=== PATIENT | female | born 1955 | race Caucasian/White ===

== ENCOUNTER → 2016-04-15 | Day surgery (SDC) | payer MEDICARE, OTHER ==
[~2016-04-15] MED LIST: ACET-706 PO; ACET325T9 PO; ACET500T68 PEG; ALBU2.5V5 NEB; ALPR0.5T PO; AMLO10TA4 PO; AMLO5TAB4 PO; BISA10SU55 RC; CLON0.1T PO; CLON1PAT3 TD; CLOP75TA PO; CLOP75TA27 PO; DIPH1TAB PEG; DOCU-27 PO; ENOX40DI SQ; FAMO-63 PO; FENTANYL PF 100 MCG/2 ML VIAL. IV PRN; HYDR-2867 PO; INSU100C SQ; INSU100I27 SQ; INSU100V13 SQ; IV RINGERS,LACTATED 1000ML 1,000 ML IV SCH; LABE100T3 PO; LANS30CA17 PEG; LEVO25TA2 PEG; LEVO500T38 PO; LEVO750T31 PO; LIDO700A4 TP; LIDOCAINE 1% 1 ML SYRINGE. ID PRN; LIDOCAINE 2% PF Vial for OR 5 ML VIAL. ONE; LIPITOR80 MG PO; LISI10TA2 PO; LORA10TA3 PO; MENT113G6 TP; METO50TA2 PEG; MIDAZOLAM HCL 2 MG/2 ML VIAL. IV PRN; MODA100T2 PO; MULT-245 PO; NITR1PAT5 TD; NYST1000 PEG; OXYC10TA PO; OXYC5TAB PEG; POTA10TA10 PO; POTA20LI14 PEG; PROPOFOL 20 ML IV ONE; ROPI0.5T2 PEG; TEMA15CA PEG; VENL25TA PEG; VENL50TA PO; [UNRECOGNIZED DRUG - CODE] OP
[2016-04-15 11:56] VITALS: BP 112/58
--- NOTE | 2016-04-16 03:29 | HP ---
ADMIT DATE: 04/15/2016 REASON FOR EXAM: Dysfunctional G-tube and oropharyngeal dysphagia. REFERRING PHYSICIAN: Dr. Ar Jc HISTORY OF PRESENT ILLNESS: This is an unfortunate 60-year-old female whose past medical history is significant for quadriplegia, recurrent urinary tract infections as well as diabetes who was seen for dysfunctional tube, has been placed now for approximately a year and replacement was requested. Unable to tolerate feedings, had increased leakage and unable to care at home with her spouse. PAST MEDICAL HISTORY: Quadriplegia, hypertension, diabetes, hypothyroidism. ALLERGIES: Penicillin, cephalexin, morphine. MEDICATIONS: Include acetaminophen, amlodipine, clonidine, Levemir, Prevacid, levothyroxine, metoprolol, nitroglycerin, nystatin, potassium chloride, temazepam and venlafaxine. SOCIAL HISTORY: Lives with her spouse. She does not drink or smoke at this time. She is quadriplegic. FAMILY HISTORY: Noncontributory. REVIEW OF SYSTEMS: Per records. PHYSICAL EXAMINATION: GENERAL: Reveals a thin, cachectic white female who is minimally responsive. VITAL SIGNS: Temp is 98.6, pulse 59, respirations 20. HEENT: Normocephalic and atraumatic head. Pupils and extraocular muscles not tested. Sclerae anicteric. NECK: Supple. LUNGS: Clear. CARDIOVASCULAR: Reveals an S1, S2 without S3, S4 or appreciable murmur. ABDOMEN: Reveals a G-tube in left upper quadrant with multiple surgical incisions. EXTREMITIES: Reveals quadriplegia. IMPRESSION: Oropharyngeal dysphagia with dysfunctional G-tube. We will recommend EGD with G-tube placement. Risks and benefits have been discussed with the patient including risks of hemorrhage or perforation requiring operation. The patient is willing to proceed at this time. I would like to thank Dr. Jc for allowing us to consult and participate in this patient's care. GEMA MIXON MD DR: GARRET/reno JOB#: [id number] / [id number] ITALO Armendariz MD
== END | disposition home or self-care (01) ==
LOC: SURG 09:04
PROVIDERS: ATTEND Internal Medicine Gastroenterology
DX: K94.23 Gastrostomy malfunction (principal); K29.50 Unspecified chronic gastritis without bleeding; I10 Essential (primary) hypertension; E11.9 Type 2 diabetes mellitus without complications; E03.9 Hypothyroidism, unspecified; E78.00 Pure hypercholesterolemia, unspecified; K21.9 Gastro-esophageal reflux disease without esophagitis; Z90.710 Acquired absence of both cervix and uterus; M19.90 Unspecified osteoarthritis, unspecified site; F32.9 Major depressive disorder, single episode, unspecified; D64.9 Anemia, unspecified
CPT/HCPCS: 43246; J2704

== ENCOUNTER 2017-01-13 09:24 | Emergency (ER) | payer MEDICARE, OTHER ==
[~2017-01-13 09:24] MED LIST changes: -DIPH1TAB PO; -IV RINGERS,LACTATED 1000ML 1,000 ML IV SCH; -LACT1CAP8 PO; -LIDOCAINE 1% PF 2 ML VIAL. ID PRN; -LIDOCAINE 2% PF Vial for OR 5 ML VIAL. ONE; +METO50TA2 PEG; -METO50TA6 PEG; -MIDAZOLAM HCL/PF 2 MG/2 ML VIAL. IV PRN; -ONDA4TAB12 PO; -PROPOFOL 0 ML IV ONE; -PROPOFOL 20 ML IV ONE; -fentaNYL PF VIAL 100 MCG/2 ML VIAL IV PRN
--- NOTE | 2017-01-13 09:43 | PHYS DOC ---
Past Medical History Past Medical History: Anemia, Arthritis, CVA, Hypertension, Stroke Additional Past Medical Histor: rectal bleeding Past Surgical History: Hysterectomy, Other Additional Past Surgical Histo: PEG TUBE PLACEMENT, carpal tunnel, cataract right eye Alcohol Use: None Drug Use: None Adult General Chief Complaint Chief Complaint: DIARRHEA HPI HPI Patient is a 61 year old female who presents with her PEG tube leaking and diarrhea. According to her about 2 weeks ago she had a urinary tract infection was placed on antibiotic in about 3 days later she started having a lot of loose stools. He states he's been giving her Imodium and Tylenol fours and she still has a tablespoon of stool every time he changed her which is about 8 times a day. He states first thing in the morning her previous are completely full and leaking over from her stool. He states this morning he was trying to give her medicines and food/feedings were coming out around the PEG tube and it was making a odd noise. Spoke with Dr. Lundberg and Dr. Stewart who recommend did the patient be evaluated in the ER. He denies that she's any pain or discomfort, has any fevers. He does state occasionally she states she's nauseated and she gets Zofran. He states she's on tube feedings all night long. According to the she was started on Flagyl several days ago. Review of Systems Review of Systems Unable to obtain from patient as she is averbal Allergies Allergies Allergies Coded Allergies Type Severity Reaction Last Updated Verified Penicillins Allergy Severe Anaphylaxis 04/15/16 Yes cephalexin Allergy Severe 04/15/16 Yes morphine Allergy Intermediate sweating and shaking 04/15/16 Yes I S O L A T I O N *CONTACT* Allergy Unknown 07/15/16 Yes Physical Exam Physical Exam Constitutional: Well developed, well nourished, no acute distress, non-toxic appearance. HENT: Normocephalic, atraumatic, bilateral external ears normal, oropharynx moist, no oral exudates, nose normal. Eyes: PERRLA, EOMI, conjunctiva normal, no discharge. Neck: Normal range of motion, no tenderness, supple, no stridor. Cardiovascular:Heart rate regular rhythm, no murmur Lungs & Thorax: Bilateral breath sounds clear to auscultation Abdomen: Bowel sounds normal, soft, no tenderness, no masses, no pulsatile masses. PEG tube in the left upper quadrant with minimal discharge around the site Skin: Warm, dry, no erythema, no rash. Back: No tenderness, no CVA tenderness. Extremities: No tenderness, no cyanosis, no clubbing, ROM intact, no edema. Neurologic: Contractures of all 4 extremities, per is at her baseline currently with her history of stroke. Psychologic: Unable to assess Current Patient Data Vital Signs Vital Signs Date Time Temp Pulse Resp B/P (MAP) Pulse Ox O2 Delivery O2 Flow Rate FiO2 01/13/17 12:20 78 131/60 (83) 95 Room Air 01/13/17 09:36 98.1 16 98.1 Lab Values Laboratory Tests Test 01/13/17 10:13 01/13/17 11:05 Urine Collection Type Unknown Urine Color Yellow Urine Clarity Clear Urine pH 8.0 Urine Specific Riddle 1.010 Urine Protein Negative mg/dL (NEG-TRACE) Urine Glucose (UA) Negative mg/dL (NEG) Urine Ketones (Stick) Negative mg/dL (NEG) Urine Blood Negative (NEG) Urine Nitrite Negative (NEG) Urine Bilirubin Negative (NEG) Urine Urobilinogen Dipstick 0.2 mg/dL (0.2 mg/dL) Urine Leukocyte Esterase Negative (NEG) Urine RBC 0 /HPF (0-2) Urine WBC 1-4 /HPF (0-4) Urine Squamous Epithelial Cells Few /LPF Urine Bacteria 0 /HPF (0-FEW) Urine Opiates Screen Pos (NEG) Urine Methadone Screen Neg (NEG) Urine Barbiturates Neg (NEG) Urine Phencyclidine Screen Neg (NEG) Urine Amphetamine/Methamphetamine Neg (NEG) Urine Benzodiazepines Screen Neg (NEG) Urine Cocaine Screen Neg (NEG) Urine Cannabinoids Screen Neg (NEG) Urine Ethyl Alcohol Neg (NEG) White Blood Count 12.1 x10^3/uL (4.0-11.0) H Red Blood Count 4.96 x10^6/uL (3.50-5.40) Hemoglobin 13.7 g/dL (12.0-15.5) Hematocrit 41.7 % (36.0-47.0) Mean Corpuscular Volume 84 fL (79-100) Mean Corpuscular Hemoglobin 28 pg (25-35) Mean Corpuscular Hemoglobin Concent 33 g/dL (31-37) Red Cell Distribution Width 14.5 % (11.5-14.5) Platelet Count 328 x10^3/uL (140-400) Neutrophils (%) (Auto) 81 % (31-73) H Lymphocytes (%) (Auto) 11 % (24-48) L Monocytes (%) (Auto) 6 % (0-9) Eosinophils (%) (Auto) 2 % (0-3) Basophils (%) (Auto) 1 % (0-3) Neutrophils # (Auto) 9.8 x10^3uL (1.8-7.7) H Lymphocytes # (Auto) 1.3 x10^3/uL (1.0-4.8) Monocytes # (Auto) 0.7 x10^3/uL (0.0-1.1) Eosinophils # (Auto) 0.2 x10^3/uL (0.0-0.7) Basophils # (Auto) 0.1 x10^3/uL (0.0-0.2) Prothrombin Time 11.7 SEC (11.7-14.0) Prothrombin Time INR 0.9 (0.8-1.1) PTT 35 SEC (24-38) Sodium Level 139 mmol/L (136-145) Potassium Level 3.9 mmol/L (3.5-5.1) Chloride Level 100 mmol/L (98-107) Carbon Dioxide Level 31 mmol/L (21-32) Anion Gap 8 (6-14) Blood Urea Nitrogen 20 mg/dL (7-20) Creatinine 0.5 mg/dL (0.6-1.0) L Estimated GFR (Cockcroft-Gault) 125.0 Glucose Level 73 mg/dL (70-99) Calcium Level 9.0 mg/dL (8.5-10.1) Total Bilirubin 0.2 mg/dL (0.2-1.0) Direct Bilirubin 0.1 mg/dL (0.0-0.2) Aspartate Amino Transferase (AST) 27 U/L (15-37) Alanine Aminotransferase (ALT) 35 U/L (14-59) Alkaline Phosphatase 126 U/L (46-116) H Creatine Kinase 54 U/L (26-192) Creatine Kinase MB (Mass) 1.1 ng/mL (0.0-3.6) Creatine Kinase MB Relative Index % (0-4) Troponin I Quantitative < 0.017 ng/mL (0.000-0.055) Total Protein 8.5 g/dL (6.4-8.2) H Albumin 3.6 g/dL (3.4-5.0) Lipase 75 U/L (73-393) Serum Test, Qualitative Negative (NEG) Laboratory Tests 01/13/17 11:05 Laboratory Tests 01/13/17 11:05 EKG EKG EKG shows sinus rhythm with rate of [address] elevations, T-wave inversion in leads 3, normal axis, QTC 465 ms, as interpreted by me. Radiology/Procedures Radiology/Procedures [facility] [address] [place], [place] [id number] IMAGING REPORT Signed PATIENT: MELODY KATHLEEN ACCOUNT: [id number] : 1955 LOCATION: ER AGE: 61 SEX: F EXAM STATUS: REG ER ORD. PHYSICIAN: HARLEY QIU MD REASON: peg tub leaking PROCEDURE: ACUTE ABDOMEN SERIES Acute abdomen series with chest, 3 views, 01/13/2017: History: Leaking gastrostomy tube A gastrostomy tube overlies the left upper quadrant of the abdomen. There is gas in large and small bowel in a nonspecific pattern. No free air is seen in the abdomen. The liver is at the upper limits of normal in size. No abnormal abdominal calcifications are seen. The heart is mildly enlarged. There is calcific plaquing of the aorta. The pulmonary vascularity is normal. No pulmonary infiltrate is seen. There is no evidence of pleural fluid. There is a mild thoracic scoliosis. There appears to be chronic subluxation at both shoulders. IMPRESSION: No acute abdominal abnormality is detected. DICTATED and SIGNED BY: WINSTON ESPINOZA MD DATE: 01/13/17 [id number] CC: ITALO SUNG MD; HARLEY QIU MD ~ Impressions: PEG tube malfunction Diarrhea Course & Med Decision Making Course & Med Decision Making Pertinent Labs and Imaging studies reviewed. (See chart for details) Patient was evaluated in the Emergency Department her acute abdominal series does not show any acute abnormalities. Labs also nonacute. Spoke with Dr. Lundberg who once her to be sent to outpatient to have her PEG tube replaced. Dr. Stewart's agreeable to plan. I have ordered stool cultures, O&P and C. difficile. As of yet she hasn't had a stool. Patient is being discharged in stable condition at this time and follow-up with Dr. Stewart regarding her chronic diarrhea. Dragon Disclaimer Dragon Disclaimer This electronic medical record was generated, in whole or in part, using a voice recognition dictation system. Departure Departure Impression: Primary Impression: Gastrostomy tube dysfunction Disposition: HOME, SELF-CARE Condition: STABLE Referrals: ITALO SUNG MD (PCP) Patient Instructions: Diarrhea, [id number] Additional Instructions: Her vitals and labs did not show any acute abnormality's. She's being discharged from the emergency department. We try to collect a stool sample prior to being discharged. If she has not given a sample prior to discharge from the ER, you will need to follow-up with Dr. Stewart and have stool samples obtained. She's owing over to the outpatient department to have her G-tube exchange at this time. Return the ER for severe weakness, excessive diarrhea, blood in her stools, or other concerns. HARLEY QIU MD Jan 13, 2017 09:43
[2017-01-13 10:41] LABS: BILIRUBIN,URINE NEGATIVE (NEG); GLUCOSE,URINE NEGATIVE (NEG); NITRITE,URINE NEGATIVE (NEG); PROTEIN,URINE NEGATIVE (NEG-TRACE); UROBILINOGEN,URINE 0.2 mg/dL (0.2 mg/dL)
[2017-01-13 10:49] LABS: BARBITURATES NEG (NEG); BENZODIAZEPINES NEG (NEG); CANNABINOIDS NEG (NEG); COCAINE NEG (NEG); METHADONE NEG (NEG); OPIATES POS (NEG); PHENCYCLIDINE NEG (NEG)
[2017-01-13 10:56] LABS: BACTERIA,URINE 0 /HPF (0-FEW); RBC,URINE 0 /HPF (0-2); SQUAMOUS EPITHELIAL CELL,UR FEW /LPF
--- NOTE | 2017-01-13 11:18 | RAD ---
Acute abdomen series with chest, 3 views, 01/13/2017: History: Leaking gastrostomy tube A gastrostomy tube overlies the left upper quadrant of the abdomen. There is gas in large and small bowel in a nonspecific pattern. No free air is seen in the abdomen. The liver is at the upper limits of normal in size. No abnormal abdominal calcifications are seen. The heart is mildly enlarged. There is calcific plaquing of the aorta. The pulmonary vascularity is normal. No pulmonary infiltrate is seen. There is no evidence of pleural fluid. There is a mild thoracic scoliosis. There appears to be chronic subluxation at both shoulders. IMPRESSION: No acute abdominal abnormality is detected.
[2017-01-13 11:40] LABS: BASO # 0.1 x10^3/uL (0.0-0.2); BASO % 1 % (0-3); EOS % 2 % (0-3); HEMATOCRIT 41.7 % (36.0-47.0); HEMOGLOBIN 13.7 g/dL (12.0-15.5); LYMPH # 1.3 x10^3/uL (1.0-4.8); LYMPH % 11 % (24-48); MEAN CORPUSCULAR HEMOGLOBIN 28 pg (25-35); MEAN CORPUSCULAR HGB CONC 33 g/dL (31-37); MEAN CORPUSCULAR VOLUME 84 fL (79-100); MONO % 6 % (0-9); NEUT % 81 % (31-73); PLATELET COUNT 328 x10^3/uL (140-400); RED BLOOD COUNT 4.96 x10^6/uL (3.50-5.40); RED CELL DISTRIBUTION WIDTH 14.5 % (11.5-14.5); WHITE BLOOD COUNT 12.1 x10^3/uL (4.0-11.0)
[2017-01-13 11:51] LABS: INR 0.9 (0.8-1.1); PROTHROMBIN TIME PATIENT 11.7 SEC (11.7-14.0)
[2017-01-13 11:56] LABS: CREATININE 0.5 mg/dL (0.6-1.0); POTASSIUM 3.9 mmol/L (3.5-5.1)
[2017-01-13 12:00] LABS: ALBUMIN 3.6 g/dL (3.4-5.0); DIRECT BILIRUBIN 0.1 mg/dL (0.0-0.2); TOTAL BILIRUBIN 0.2 mg/dL (0.2-1.0); TOTAL PROTEIN 8.5 g/dL (6.4-8.2)
[2017-01-13 12:02] LABS: NEG OBC SER NEG; POS OBC SER POS
[2017-01-13 12:14] LABS: CKMB MASS 1.1 ng/mL (0.0-3.6); CREATINE KINASE 54 U/L (26-192)
[2017-01-13 12:56] VITALS: BP 134/63
--- NOTE | 2017-01-13 13:19 | EKG ---
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
--- NOTE | 2017-01-14 11:07 | CONS ---
DATE OF CONSULTATION: 01/13/2017 REASON FOR CONSULTATION: Dysfunctional G-tube oropharyngeal dysphagia. HISTORY OF PRESENT ILLNESS: A 61-year-old female with past medical history significant for CVA, hypertension, arthritis, post-hysterectomy, carpal tunnel surgery, cataract of right eye is seen, and dysfunctional G-tube ____ lying around the tube as well as difficulty with flushing. She had the tube in for approximately a year and a half and is here now for replacement. She is nonverbal, there is minimal additional history. All information is obtained from her . PAST MEDICAL HISTORY: CVA, hypertension, arthritis, anemia, status post hysterectomy oropharyngeal dysphagia, status post PEG placement, cataract surgery in the right eye. MEDICATIONS: Presently include Norvasc, clonidine, atropine, insulin, Prevacid, Levaquin, levothyroxine, metoprolol, Nystatin, potassium chloride, ropinirole, temazepam, venlafaxine. ALLERGIES: PENICILLIN, CEPHALEXIN, MORPHINE. FAMILY AND SOCIAL HISTORY: Lives with her spouse. Does not drink or smoke. She is on disability. REVIEW OF SYSTEMS: Per records as she is nonverbal. PHYSICAL EXAMINATION: GENERAL: Thin female. VITAL SIGNS: Temperature is 97.3, pulse is 90, respirations 20. HEENT: Normocephalic and atraumatic head. Pupils and extraocular muscles are not tested. Sclerae anicteric. NECK: Supple. Previous trach. LUNGS: Reveals decreased breath sounds. CARDIOVASCULAR: S1, S2 without S3, S4 or appreciable murmur. ABDOMEN: Soft abdomen, normal bowel sounds, without appreciable hepatosplenomegaly. Left upper quadrant with PEG tube. EXTREMITIES: Reveals flexion contractures. IMPRESSION: Oropharyngeal dysphagia, dysfunctional G-tube. PLAN: We will recommend EGD with PEG placement. Risks and benefits have been discussed with the patient's spouse including risk of perforation as well as cellulitis. He is willing to proceed at this time. I would like to thank Dr. Jc for allowing us to consult and participate in this patient's care. GEMA MIXON MD DR: GARRET/reno JOB#: [id number] / [id number]
== END 2017-01-13 13:05 | disposition home or self-care (01) ==
LOC: ER 09:24
DX: K94.23 Gastrostomy malfunction (principal); I10 Essential (primary) hypertension; Z86.73 Personal history of transient ischemic attack (TIA), and cerebral infarction without residual deficits; M19.90 Unspecified osteoarthritis, unspecified site; Z90.710 Acquired absence of both cervix and uterus; Y84.9 Medical procedure, unspecified as the cause of abnormal reaction of the patient, or of later complication, without mention of misadventure at the time of the procedure; Y92.89 Other specified places as the place of occurrence of the external cause
CPT/HCPCS: 36415; 43760; 74022; 80048; 80076; 80307; 81001; 82553; 83690; 84484; 84703; 85025; 85610; 85730; 93005; 99285-25; G0479

== ENCOUNTER → 2017-01-13 | Day surgery (SDC) | payer MEDICARE, OTHER ==
[~2017-01-13] MED LIST changes: -CLOP75TA27 PO; +CLOP75TA57 PO; +DIPH1TAB PO; +DOCU-109 PO; -DOCU-27 PO; -FENTANYL PF 100 MCG/2 ML VIAL. IV PRN; +LACT1CAP8 PO; -LANS30CA17 PEG; +LANS30CA66 PEG; -LEVO25TA2 PEG; +LEVO25TA55 PEG; -LEVO500T38 PO; +LEVO500T59 PO; -LIDOCAINE 1% 1 ML SYRINGE. ID PRN; +LIDOCAINE 1% PF 2 ML VIAL. ID PRN; -METO50TA2 PEG; +METO50TA6 PEG; -MIDAZOLAM HCL 2 MG/2 ML VIAL. IV PRN; +MIDAZOLAM HCL/PF 2 MG/2 ML VIAL. IV PRN; -NYST1000 PEG; +NYST100054 PEG; +ONDA4TAB12 PO; -OXYC5TAB PEG; +OXYC5TAB95 PEG; -POTA10TA10 PO; +POTA10TA12 PO; +PROPOFOL 0 ML IV ONE; +fentaNYL PF VIAL 100 MCG/2 ML VIAL IV PRN
[2017-01-13 14:30] VITALS: BP 149/66
== END | disposition home or self-care (01) ==
LOC: SURG 12:38
PROVIDERS: ATTEND Internal Medicine Gastroenterology
DX: K94.23 Gastrostomy malfunction (principal); K29.50 Unspecified chronic gastritis without bleeding; E78.00 Pure hypercholesterolemia, unspecified; I10 Essential (primary) hypertension; K21.9 Gastro-esophageal reflux disease without esophagitis; E11.9 Type 2 diabetes mellitus without complications; E03.9 Hypothyroidism, unspecified; Z86.73 Personal history of transient ischemic attack (TIA), and cerebral infarction without residual deficits; Z86.69 Personal history of other diseases of the nervous system and sense organs; Z86.39 Personal history of other endocrine, nutritional and metabolic disease; Z87.01 Personal history of pneumonia (recurrent); Z90.710 Acquired absence of both cervix and uterus; Z86.14 Personal history of Methicillin resistant Staphylococcus aureus infection; Z88.6 Allergy status to analgesic agent; Z88.1 Allergy status to other antibiotic agents; Z88.0 Allergy status to penicillin
CPT/HCPCS: 43246; J2704; J2001

== ENCOUNTER 2017-02-15 09:57 | Inpatient (IN) | payer MEDICARE, OTHER ==
[~2017-02-15] VITALS: Ht 147.3 cm; Wt 60.3 kg
[~2017-02-15 09:57] MED LIST changes: -METO50TA2 PEG; +METO50TA6 PEG
[2017-02-15] MEDS ORDERED: ONDA4TAB12 PO (12:06)
[2017-02-15 13:50] VITALS: BP 146/67
[2017-02-15] MEDS ORDERED: ACETAMINOPHEN WITH CODEINE PO PRN (14:00)
[2017-02-15] MEDS ORDERED: ONDANSETRON ODT 4 MG TAB.RAPDIS. PO PRN (14:00)
[2017-02-15] MEDS: VENLAFAXINE 50 MG TABLET. PEG SCH (14:15)
[2017-02-15] MEDS ORDERED: DEXTROSE 50% 25 GM / 50ML DISP.SYRIN. IV PRN ×2 (14:45)
[2017-02-15 15:00] VITALS: BP 170/79
[2017-02-15] MEDS: amLODIPine BESYLATE 10 MG TABLET PO SCH (15:00)
[2017-02-15] MEDS: NITROGLYCERIN 0.2MG/HR PATCH. TD SCH (15:00)
[2017-02-15] MEDS: cefTRIAXone IV Push 1 GM VIAL. IVP SCH (17:02)
--- NOTE | 2017-02-15 17:34 | PDOC ---
GENERAL General: see dictated H&P. Problems: VITAL SIGNS Vital Signs: Vital Signs Date Time Temp Pulse Resp B/P (MAP) Pulse Ox O2 Delivery O2 Flow Rate FiO2 02/15/17 15:00 97.7 88 20 170/79 (109) 94 Room Air 97.7 ALLERGIES Allergies: Allergies Coded Allergies Type Severity Reaction Last Updated Verified Penicillins Allergy Severe Anaphylaxis 01/13/17 Yes cephalexin Allergy Severe 01/13/17 Yes morphine Allergy Intermediate sweating and shaking 01/13/17 Yes I S O L A T I O N *CONTACT* Allergy Unknown 01/13/17 Yes MEDS Medications: Current Medications Medications (Trade) Dose Ordered Sig/Kaz Start Time Stop Time Status Last Admin Dose Admin Acetaminophen (Tylenol) 1,000 mg Q6HRS 02/15/17 18:00 02/15/17 18:00 DC Acetaminophen/ Codeine Phosphate (Tylenol #3) 2 tab TID PRN PRN 02/15/17 15:15 Amlodipine Besylate (Norvasc) 10 mg DAILY 02/15/17 15:00 Ceftriaxone Sodium (Rocephin) 1 gm Q24H 02/15/17 17:00 02/15/17 17:02 1 GM Clonidine HCl (Catapres Tts-3) 1 patch Mo 02/20/17 09:00 Codeine Sulfate (Codeine) 60 mg PRN TID PRN 02/15/17 15:15 Dextrose (Dextrose 50%-Water Syringe) 12.5 gm PRN Q15MIN PRN 02/15/17 14:45 Diphenoxylate HCl/ Atropine (Lomotil) 2 tab PRN Q4HRS PRN 02/15/17 14:00 Insulin Aspart (NovoLOG) Sliding scale FSBG <12... QIDACHS 02/15/17 16:30 Insulin Detemir (Levemir) 30 units QHS 02/15/17 21:00 Lansoprazole (Prevacid) 30 mg BIDBFRMEAL 02/15/17 16:30 Levothyroxine Sodium (Synthroid) 25 mcg DAILY07 02/16/17 07:00 Metoprolol Tartrate (Lopressor) 50 mg BID 02/15/17 21:00 Nitroglycerin (Nitro-Dur) 1 patch DAILY 02/15/17 15:00 Non-Formulary Medication 2 each PRN Q4HRS PRN 02/15/17 14:00 02/15/17 15:03 DC Ondansetron HCl (Zofran Odt) 4 mg TID PRN PRN 02/15/17 14:00 Potassium Chloride (KCl Oral Soln) 20 meq DAILY 02/16/17 09:00 Ropinirole HCl (Requip) 0.5 mg QHS 02/15/17 21:00 Temazepam (Restoril) 30 mg HS 02/15/17 21:00 Venlafaxine HCl (Effexor) 25 mg DAILY 02/15/17 14:15 LAB Lab: Laboratory Tests Test 02/15/17 17:10 Glucose (Fingerstick) 144 mg/dL (70-99) ITALO SUNG MD Feb 15, 2017 17:34
[2017-02-15] MEDS ORDERED: ACETAMINOPHEN 500 MG TABLET PO SCH (18:00)
[2017-02-15] MEDS: INSULIN ASPART 300 UNITS/3 ML INSULN.PEN SQ SCH ×2 (18:18→22:38)
[2017-02-15 18:22] LABS: BASO # 0.1 x10^3/uL (0.0-0.2); BASO % 1 % (0-3); EOS % 1 % (0-3); HEMATOCRIT 42.2 % (36.0-47.0); HEMOGLOBIN 13.9 g/dL (12.0-15.5); LYMPH # 2.6 x10^3/uL (1.0-4.8); LYMPH % 25 % (24-48); MEAN CORPUSCULAR HEMOGLOBIN 28 pg (25-35); MEAN CORPUSCULAR HGB CONC 33 g/dL (31-37); MEAN CORPUSCULAR VOLUME 85 fL (79-100); MONO % 10 % (0-9); NEUT % 63 % (31-73); PLATELET COUNT 241 x10^3/uL (140-400); RED BLOOD COUNT 4.96 x10^6/uL (3.50-5.40); RED CELL DISTRIBUTION WIDTH 15.6 % (11.5-14.5); RETIC COUNT 1.2 % (0.5-2.5); WHITE BLOOD COUNT 10.3 x10^3/uL (4.0-11.0)
[2017-02-15 18:44] LABS: ALBUMIN 3.3 g/dL (3.4-5.0); ALBUMIN/GLOBULIN RATIO 0.7 (1.0-1.7); CALCIUM 9.1 mg/dL (8.5-10.1); CREATININE 0.5 mg/dL (0.6-1.0); POTASSIUM 3.7 mmol/L (3.5-5.1); TOTAL BILIRUBIN 0.3 mg/dL (0.2-1.0); TOTAL PROTEIN 7.9 g/dL (6.4-8.2)
[2017-02-15 19:00] VITALS: BP 130/63
--- NOTE | 2017-02-15 19:18 | HP ---
ADMIT DATE: 02/15/2017 CHIEF COMPLAINT AND HISTORY OF PRESENT ILLNESS: This 61-year-old female is well known to me from followup over many years. The patient has basically been homebound in the bed in the front room since her severe CVA several years ago that had left her densely hemiparetic and aphasic. Her is taking care of her over these years and has done a very good job of doing so. He recognized within the last 2-3 days that her urine beginning to smell very strong and despite antibiotic therapy, this was not helping. Her mental status decreased. Her sugars became much higher, and it was elected to admit her for further treatment and evaluation as well as urine culture and sensitivity and this was accomplished. PAST MEDICAL HISTORY: Well documented in old charts. Does include longstanding diabetes. She has a history of hypothyroidism, hypertension, depression and diabetes type 2 with insulin requiring. She has had prior hysterectomy. She has a history of anemia, and she has oropharyngeal dysphagia after the stroke and has a PEG placement. She has had cataract surgery in the right eye. MEDICATIONS: Brought with the patient, listed on the computer and have been addressed. ALLERGIES: SHE IS ALLERGIC TO PENICILLIN, CEPHALEXIN AND MORPHINE. SOCIAL HISTORY: She is . Lives at home with her . Does not smoke or drink or use drugs. She is completely disabled. FAMILY HISTORY: Noncontributory. REVIEW OF SYSTEMS: As mentioned above. PHYSICAL EXAMINATION: GENERAL: She is a well-developed and well-nourished female who appears less alert than usual and less interactive. VITAL SIGNS: Stable. She is afebrile. HEAD, EYES, EARS, NOSE AND THROAT: Unremarkable. NECK: Supple without adenopathy or thyromegaly. CHEST: Clear to auscultation and percussion. HEART: Regular rate and rhythm without S3, S4 or murmur. ABDOMEN: Soft and nontender without hepatosplenomegaly or mass. She has chronic PEG tube present. EXTREMITIES: Reveal flexion contractures. NEUROLOGIC: Reveals aphasia and hemiparesis. IMPRESSION: Change in mental status, likely due to urinary tract infection with hyperglycemia as noted above. PLAN: The patient has been admitted. Rocephin will be started. Urine has been cultured. Labs will be checked and patient will be monitored, managed and treated appropriately. ITALO SUNG MD DR: Laurel JOB#: [id number] / [id number]
[2017-02-15] MEDS: LANSOPRAZOLE 30 MG TAB.RAP.DR PEG SCH (22:15)
[2017-02-15] MEDS: rOPINIRole 0.25 MG TABLET. PEG SCH (22:17)
[2017-02-15] MEDS: TEMAZEPAM 15 MG CAPSULE PO SCH (22:17)
[2017-02-15] MEDS: DIPHENOXYLATE/ATROPINE TABLET. PEG PRN (22:17)
[2017-02-15] MEDS: CODEINE SULFATE 30 MG TABLET. PO PRN (22:18)
[2017-02-15] MEDS: METOPROLOL TART IMMED RELEASE 50 MG TABLET. PEG SCH (22:25)
[2017-02-15] MEDS: INSULIN DETEMIR 300 UNITS/3 ML INSULN.PEN. SQ SCH (22:38)
[2017-02-15 22:59] VITALS: BP 137/70
[2017-02-16 03:00] VITALS: BP 135/69
[2017-02-16] MEDS: LEVOTHYROXINE 25 MCG TABLET. PEG SCH (06:24)
[2017-02-16] MEDS: LANSOPRAZOLE 30 MG TAB.RAP.DR PEG SCH ×2 (06:25→16:48)
[2017-02-16 07:58] VITALS: BP 121/55
--- NOTE | 2017-02-16 08:59 | PDOC ---
GENERAL General: vss and afebrile. awake but still feels not close to baseline interactivity. coughing all night long and has been getting pleasure feeds at home for the last few weeks and this at least raises the question of aspiration as generator for current situation. ua not on chart and not sure why this was not collected as was ordered. chest with good breath sounds, heart regular, and abdomen benign. will check cxr and continue present. Problems: VITAL SIGNS Vital Signs: Vital Signs Date Time Temp Pulse Resp B/P (MAP) Pulse Ox O2 Delivery O2 Flow Rate FiO2 02/16/17 07:58 97.9 84 18 121/55 (77) 97 Room Air 97.9 I & O I & O Intake and Output 02/16/17 07:00 Intake Total 450 ml Balance 450 ml Intake Oral 0 ml Tube Feeding 450 ml # Voids 7 ALLERGIES Allergies: Allergies Coded Allergies Type Severity Reaction Last Updated Verified Penicillins Allergy Severe Anaphylaxis 01/13/17 Yes cephalexin Allergy Severe 01/13/17 Yes morphine Allergy Intermediate sweating and shaking 01/13/17 Yes I S O L A T I O N *CONTACT* Allergy Unknown 01/13/17 Yes MEDS Medications: Current Medications Medications (Trade) Dose Ordered Sig/Kaz Start Time Stop Time Status Last Admin Dose Admin Acetaminophen (Tylenol) 1,000 mg Q6HRS 02/15/17 18:00 02/15/17 18:00 DC Acetaminophen/ Codeine Phosphate (Tylenol #3) 2 tab TID PRN PRN 02/15/17 15:15 Amlodipine Besylate (Norvasc) 10 mg DAILY 02/15/17 15:00 Ceftriaxone Sodium (Rocephin) 1 gm Q24H 02/15/17 17:00 02/15/17 17:02 1 GM Clonidine HCl (Catapres Tts-3) 1 patch Mo 02/20/17 09:00 Codeine Sulfate (Codeine) 60 mg PRN TID PRN 02/15/17 15:15 02/15/17 22:18 60 MG Dextrose (Dextrose 50%-Water Syringe) 12.5 gm PRN Q15MIN PRN 02/15/17 14:45 Diphenoxylate HCl/ Atropine (Lomotil) 2 tab PRN Q4HRS PRN 02/15/17 14:00 02/15/17 22:17 2 TAB Insulin Aspart (NovoLOG) Sliding scale FSBG <12... QIDACHS 02/15/17 16:30 02/15/17 22:38 4 UNITS Insulin Detemir (Levemir) 30 units QHS 02/15/17 21:00 02/15/17 22:38 30 UNITS Lansoprazole (Prevacid) 30 mg BIDBFRMEAL 02/15/17 16:30 02/16/17 06:25 30 MG Levothyroxine Sodium (Synthroid) 25 mcg DAILY07 02/16/17 07:00 02/16/17 06:24 25 MCG Metoprolol Tartrate (Lopressor) 50 mg BID 02/15/17 21:00 02/15/17 22:25 50 MG Nitroglycerin (Nitro-Dur) 1 patch DAILY 02/15/17 15:00 Non-Formulary Medication 2 each PRN Q4HRS PRN 02/15/17 14:00 02/15/17 15:03 DC Ondansetron HCl (Zofran Odt) 4 mg TID PRN PRN 02/15/17 14:00 Potassium Chloride (KCl Oral Soln) 20 meq DAILY 02/16/17 09:00 Ropinirole HCl (Requip) 0.5 mg QHS 02/15/17 21:00 02/15/17 22:17 0.5 MG Temazepam (Restoril) 30 mg HS 02/15/17 21:00 02/15/17 22:17 30 MG Venlafaxine HCl (Effexor) 25 mg DAILY 02/15/17 14:15 LAB Lab: Laboratory Tests Test 02/15/17 17:10 02/15/17 18:11 02/15/17 20:42 02/16/17 07:41 Glucose (Fingerstick) 144 mg/dL (70-99) 176 mg/dL (70-99) 199 mg/dL (70-99) White Blood Count 10.3 x10^3/uL (4.0-11.0) Red Blood Count 4.96 x10^6/uL (3.50-5.40) Hemoglobin 13.9 g/dL (12.0-15.5) Hematocrit 42.2 % (36.0-47.0) Mean Corpuscular Volume 85 fL (79-100) Mean Corpuscular Hemoglobin 28 pg (25-35) Mean Corpuscular Hemoglobin Concent 33 g/dL (31-37) Red Cell Distribution Width 15.6 % (11.5-14.5) Platelet Count 241 x10^3/uL (140-400) Neutrophils (%) (Auto) 63 % (31-73) Lymphocytes (%) (Auto) 25 % (24-48) Monocytes (%) (Auto) 10 % (0-9) Eosinophils (%) (Auto) 1 % (0-3) Basophils (%) (Auto) 1 % (0-3) Neutrophils # (Auto) 6.5 x10^3uL (1.8-7.7) Lymphocytes # (Auto) 2.6 x10^3/uL (1.0-4.8) Monocytes # (Auto) 1.0 x10^3/uL (0.0-1.1) Eosinophils # (Auto) 0.1 x10^3/uL (0.0-0.7) Basophils # (Auto) 0.1 x10^3/uL (0.0-0.2) Reticulocyte Count (auto) 1.2 % (0.5-2.5) Sodium Level 140 mmol/L (136-145) Potassium Level 3.7 mmol/L (3.5-5.1) Chloride Level 101 mmol/L (98-107) Carbon Dioxide Level 28 mmol/L (21-32) Anion Gap 11 (6-14) Blood Urea Nitrogen 14 mg/dL (7-20) Creatinine 0.5 mg/dL (0.6-1.0) Estimated GFR (Cockcroft-Gault) 125.0 BUN/Creatinine Ratio 28 (6-20) Glucose Level 175 mg/dL (70-99) Calcium Level 9.1 mg/dL (8.5-10.1) Total Bilirubin 0.3 mg/dL (0.2-1.0) Aspartate Amino Transf (AST/SGOT) 16 U/L (15-37) Alanine Aminotransferase (ALT/SGPT) 17 U/L (14-59) Alkaline Phosphatase 110 U/L (46-116) Total Protein 7.9 g/dL (6.4-8.2) Albumin 3.3 g/dL (3.4-5.0) Albumin/Globulin Ratio 0.7 (1.0-1.7) APPLITALO MD Feb 16, 2017 08:59
[2017-02-16] MEDS: INSULIN ASPART 300 UNITS/3 ML INSULN.PEN SQ SCH ×4 (09:18→21:00)
[2017-02-16] MEDS: POTASSIUM CHLORIDE 20 MEQ/15 ML ORAL LIQUID. PEG SCH (09:29)
[2017-02-16] MEDS: NITROGLYCERIN 0.2MG/HR PATCH. TD SCH (09:30)
[2017-02-16] MEDS: VENLAFAXINE 50 MG TABLET. PEG SCH (09:31)
[2017-02-16] MEDS: METOPROLOL TART IMMED RELEASE 50 MG TABLET. PEG SCH ×2 (09:33→22:31)
[2017-02-16] MEDS: amLODIPine BESYLATE 10 MG TABLET PO SCH (09:34)
[2017-02-16] MEDS: CODEINE SULFATE 30 MG TABLET. PO PRN ×3 (09:36→22:33)
[2017-02-16] MEDS: DIPHENOXYLATE/ATROPINE TABLET. PEG PRN ×3 (09:41→22:32)
[2017-02-16] MEDS: ACETAMINOPHEN/CODEINE 300/30MG TABLET. PO PRN ×2 (09:43→16:52)
[2017-02-16 11:10] VITALS: BP 144/51
--- NOTE | 2017-02-16 13:56 | RAD ---
Portable chest, 02/16/2017: History: Possible aspiration Comparison is made to a study from 01/13/2017. The heart is at the upper limits of normal in size. The pulmonary vascularity is normal. No acute infiltrates are seen. There is no evidence of pleural fluid. Scattered degenerative changes are present in the spine. There appears be chronic subluxation at both glenohumeral joints. IMPRESSION: No acute cardiopulmonary abnormality is detected.
[2017-02-16 15:20] VITALS: BP 141/57
[2017-02-16] MEDS: cefTRIAXone IV Push 1 GM VIAL. IVP SCH (16:54)
[2017-02-16 19:00] VITALS: BP 152/67
[2017-02-16] MEDS: rOPINIRole 0.25 MG TABLET. PEG SCH (22:32)
[2017-02-16] MEDS: TEMAZEPAM 15 MG CAPSULE PO SCH (22:32)
[2017-02-16] MEDS: INSULIN DETEMIR 300 UNITS/3 ML INSULN.PEN. SQ SCH (22:53)
[2017-02-16 23:00] VITALS: BP 152/72
[2017-02-17 03:00] VITALS: BP 156/69
[2017-02-17] MEDS ORDERED: INSULIN ASPART 300 UNITS/3 ML INSULN.PEN SQ ONE ×2 (04:45)
[2017-02-17] MEDS: LANSOPRAZOLE 30 MG TAB.RAP.DR PEG SCH ×2 (06:16→15:24)
[2017-02-17] MEDS: LEVOTHYROXINE 25 MCG TABLET. PEG SCH (06:16)
[2017-02-17 07:00] VITALS: BP 119/54
[2017-02-17] MEDS: INSULIN ASPART 300 UNITS/3 ML INSULN.PEN SQ SCH ×4 (07:30→21:00)
[2017-02-17] MEDS: VENLAFAXINE 50 MG TABLET. PEG SCH (08:30)
[2017-02-17] MEDS: NITROGLYCERIN 0.2MG/HR PATCH. TD SCH (08:30)
[2017-02-17] MEDS: amLODIPine BESYLATE 10 MG TABLET PO SCH (08:31)
[2017-02-17] MEDS: METOPROLOL TART IMMED RELEASE 50 MG TABLET. PEG SCH ×2 (08:32→21:36)
[2017-02-17] MEDS: POTASSIUM CHLORIDE 20 MEQ/15 ML ORAL LIQUID. PEG SCH (08:33)
[2017-02-17] MEDS: DIPHENOXYLATE/ATROPINE TABLET. PEG PRN (08:42)
[2017-02-17] MEDS: CODEINE SULFATE 30 MG TABLET. PO PRN ×3 (08:43→21:37)
[2017-02-17] MEDS: ACETAMINOPHEN/CODEINE 300/30MG TABLET. PO PRN (08:43)
--- NOTE | 2017-02-17 08:51 | PDOC ---
GENERAL General: vss and afebrile. more awake and alert this am and nonverbal. chest clear and cxr was ok. heart regular and abdomen benign. will recheck ua. sugars still some high but not bad but feels they are much higher still than at home. continue antibiotics. Problems: VITAL SIGNS Vital Signs: Vital Signs Date Time Temp Pulse Resp B/P (MAP) Pulse Ox O2 Delivery O2 Flow Rate FiO2 02/17/17 08:43 96 Room Air 02/17/17 08:32 100 156/69 02/17/17 03:00 97.1 18 97.1 I & O I & O Intake and Output 02/17/17 07:00 Intake Total 450 ml Balance 450 ml Intake Oral 0 ml Tube Feeding 450 ml # Voids 4 ALLERGIES Allergies: Allergies Coded Allergies Type Severity Reaction Last Updated Verified Penicillins Allergy Severe Anaphylaxis 01/13/17 Yes cephalexin Allergy Severe 01/13/17 Yes morphine Allergy Intermediate sweating and shaking 01/13/17 Yes I S O L A T I O N *CONTACT* Allergy Unknown 01/13/17 Yes MEDS Medications: Current Medications Medications (Trade) Dose Ordered Sig/Kaz Start Time Stop Time Status Last Admin Dose Admin Acetaminophen (Tylenol) 1,000 mg Q6HRS 02/15/17 18:00 02/15/17 18:00 DC Acetaminophen/ Codeine Phosphate (Tylenol #3) 2 tab TID PRN PRN 02/15/17 15:15 02/17/17 08:43 2 TAB Amlodipine Besylate (Norvasc) 10 mg DAILY 02/15/17 15:00 02/17/17 08:31 10 MG Ceftriaxone Sodium (Rocephin) 1 gm Q24H 02/15/17 17:00 02/16/17 16:54 1 GM Clonidine HCl (Catapres Tts-3) 1 patch Mo 02/20/17 09:00 Codeine Sulfate (Codeine) 60 mg PRN TID PRN 02/15/17 15:15 02/17/17 08:43 60 MG Dextrose (Dextrose 50%-Water Syringe) 12.5 gm PRN Q15MIN PRN 02/15/17 14:45 Diphenoxylate HCl/ Atropine (Lomotil) 2 tab PRN Q4HRS PRN 02/15/17 14:00 02/17/17 08:42 2 TAB Insulin Aspart (NovoLOG) 5 units 1X ONCE 02/17/17 04:45 02/17/17 05:08 DC 02/17/17 04:50 5 UNITS Insulin Detemir (Levemir) 30 units QHS 02/15/17 21:00 02/16/17 22:53 38 UNITS Lansoprazole (Prevacid) 30 mg BIDBFRMEAL 02/15/17 16:30 02/17/17 06:16 30 MG Levothyroxine Sodium (Synthroid) 25 mcg DAILY07 02/16/17 07:00 02/17/17 06:16 25 MCG Metoprolol Tartrate (Lopressor) 50 mg BID 02/15/17 21:00 02/17/17 08:32 50 MG Nitroglycerin (Nitro-Dur) 1 patch DAILY 02/15/17 15:00 02/17/17 08:30 1 PATCH Non-Formulary Medication 2 each PRN Q4HRS PRN 02/15/17 14:00 02/15/17 15:03 DC Ondansetron HCl (Zofran Odt) 4 mg TID PRN PRN 02/15/17 14:00 Potassium Chloride (KCl Oral Soln) 20 meq DAILY 02/16/17 09:00 02/17/17 08:33 20 MEQ Ropinirole HCl (Requip) 0.5 mg QHS 02/15/17 21:00 02/16/17 22:32 0.5 MG Temazepam (Restoril) 30 mg HS 02/15/17 21:00 02/16/17 22:32 30 MG Venlafaxine HCl (Effexor) 25 mg DAILY 02/15/17 14:15 02/17/17 08:30 25 MG LAB Lab: Laboratory Tests Test 02/16/17 10:46 02/16/17 16:10 02/16/17 20:27 02/16/17 22:28 Glucose (Fingerstick) 170 mg/dL (70-99) 179 mg/dL (70-99) 202 mg/dL (70-99) 238 mg/dL (70-99) Test 02/17/17 04:16 02/17/17 07:52 Glucose (Fingerstick) 188 mg/dL (70-99) 88 mg/dL (70-99) ITALO SUNG MD Feb 17, 2017 08:51
[2017-02-17] MEDS: LACTOBACILLUS RHAMNOSUS GG 1 CAPSULE. PO SCH (09:00)
[2017-02-17 11:00] VITALS: BP 135/53
[2017-02-17] MEDS: DIPHENOXYLATE/ATROPINE TABLET. PEG SCH ×3 (11:15→21:35)
[2017-02-17 13:36] LABS: BILIRUBIN,URINE NEGATIVE (NEG); GLUCOSE,URINE NEGATIVE (NEG); NITRITE,URINE NEGATIVE (NEG); PH,URINE 7.5; PROTEIN,URINE NEGATIVE (NEG-TRACE)
[2017-02-17 13:52] LABS: BACTERIA,URINE FEW /HPF (0-FEW); RBC,URINE 0 /HPF (0-2); SQUAMOUS EPITHELIAL CELL,UR MANY /LPF
[2017-02-17 15:00] VITALS: BP 138/63
[2017-02-17] MEDS: ACETAMINOPHEN/CODEINE 300/30MG TABLET. PO SCH ×2 (15:24→21:35)
[2017-02-17] MEDS: cefTRIAXone IV Push 1 GM VIAL. IVP SCH (17:00)
[2017-02-17 19:55] VITALS: BP 128/71
[2017-02-17] MEDS: rOPINIRole 0.25 MG TABLET. PEG SCH (21:35)
[2017-02-17] MEDS: TEMAZEPAM 15 MG CAPSULE PO SCH (21:35)
[2017-02-17] MEDS: INSULIN DETEMIR 300 UNITS/3 ML INSULN.PEN. SQ SCH (21:47)
[2017-02-17 23:55] VITALS: BP 124/55
[2017-02-18 03:44] VITALS: BP 142/62
[2017-02-18 07:55] VITALS: BP 153/72
[2017-02-18] MEDS: CODEINE SULFATE 30 MG TABLET. PO PRN (08:47)
[2017-02-18] MEDS: LACTOBACILLUS RHAMNOSUS GG 1 CAPSULE. PO SCH (08:47)
[2017-02-18] MEDS: amLODIPine BESYLATE 10 MG TABLET PO SCH (08:48)
[2017-02-18] MEDS: LANSOPRAZOLE 30 MG TAB.RAP.DR PEG SCH (08:48)
[2017-02-18] MEDS: ACETAMINOPHEN/CODEINE 300/30MG TABLET. PO SCH (08:48)
[2017-02-18] MEDS: POTASSIUM CHLORIDE 20 MEQ/15 ML ORAL LIQUID. PEG SCH (08:48)
[2017-02-18] MEDS: METOPROLOL TART IMMED RELEASE 50 MG TABLET. PEG SCH (08:49)
[2017-02-18] MEDS: LEVOTHYROXINE 25 MCG TABLET. PEG SCH (08:49)
[2017-02-18] MEDS: NITROGLYCERIN 0.2MG/HR PATCH. TD SCH (08:49)
[2017-02-18] MEDS: DIPHENOXYLATE/ATROPINE TABLET. PEG SCH (08:49)
[2017-02-18] MEDS: VENLAFAXINE 50 MG TABLET. PEG SCH (08:49)
[2017-02-18] MEDS: INSULIN ASPART 300 UNITS/3 ML INSULN.PEN SQ SCH ×2 (09:11→11:30)
[2017-02-18 10:30] VITALS: BP 145/68
--- NOTE | 2017-02-18 10:35 | PDOC ---
GENERAL General: see discharge summary. Problems: VITAL SIGNS Vital Signs: Vital Signs Date Time Temp Pulse Resp B/P (MAP) Pulse Ox O2 Delivery O2 Flow Rate FiO2 02/18/17 10:09 97 Room Air 02/18/17 08:49 90 142/62 02/18/17 07:55 96.2 18 96.2 I & O I & O Intake and Output 02/18/17 07:00 Intake Total 3424 ml Balance 3424 ml Intake Oral 0 ml Tube Feeding 2024 ml Other 1400 ml # Voids 3 # Bowel Movements 1 ALLERGIES Allergies: Allergies Coded Allergies Type Severity Reaction Last Updated Verified Penicillins Allergy Severe Anaphylaxis 01/13/17 Yes cephalexin Allergy Severe 01/13/17 Yes morphine Allergy Intermediate sweating and shaking 01/13/17 Yes I S O L A T I O N *CONTACT* Allergy Unknown 01/13/17 Yes MEDS Medications: Current Medications Medications (Trade) Dose Ordered Sig/Kaz Start Time Stop Time Status Last Admin Dose Admin Acetaminophen (Tylenol) 1,000 mg Q6HRS 02/15/17 18:00 02/15/17 18:00 DC Acetaminophen/ Codeine Phosphate (Tylenol #3) 2 tab TID 02/17/17 14:00 02/18/17 08:48 2 TAB Amlodipine Besylate (Norvasc) 10 mg DAILY 02/15/17 15:00 02/18/17 08:48 10 MG Ceftriaxone Sodium (Rocephin) 1 gm Q24H 02/15/17 17:00 02/17/17 17:00 1 GM Clonidine HCl (Catapres Tts-3) 1 patch Mo 02/20/17 09:00 Codeine Sulfate (Codeine) 60 mg PRN TID PRN 02/15/17 15:15 02/18/17 08:47 60 MG Dextrose (Dextrose 50%-Water Syringe) 12.5 gm PRN Q15MIN PRN 02/15/17 14:45 Diphenoxylate HCl/ Atropine (Lomotil) 2 tab TID 02/17/17 11:15 02/18/17 08:49 2 TAB Insulin Aspart (NovoLOG) 5 units 1X ONCE 02/17/17 04:45 02/17/17 05:08 DC 02/17/17 04:50 5 UNITS Insulin Detemir (Levemir) 30 units QHS 02/15/17 21:00 11/17/17 21:47 23 UNITS Lactobacillus Rhamnosus (Culturelle) 1 cap DAILY 02/17/17 09:00 02/18/17 08:47 1 CAP Lansoprazole (Prevacid) 30 mg BIDBFRMEAL 02/15/17 16:30 02/18/17 08:48 30 MG Levothyroxine Sodium (Synthroid) 25 mcg DAILY07 02/16/17 07:00 02/18/17 08:49 25 MCG Metoprolol Tartrate (Lopressor) 50 mg BID 02/15/17 21:00 02/18/17 08:49 50 MG Nitroglycerin (Nitro-Dur) 1 patch DAILY 02/15/17 15:00 02/18/17 08:49 1 PATCH Non-Formulary Medication 2 each PRN Q4HRS PRN 02/15/17 14:00 02/15/17 15:03 DC Ondansetron HCl (Zofran Odt) 4 mg TID PRN PRN 02/15/17 14:00 Potassium Chloride (KCl Oral Soln) 20 meq DAILY 02/16/17 09:00 02/18/17 08:48 20 MEQ Ropinirole HCl (Requip) 0.5 mg QHS 02/15/17 21:00 02/17/17 21:35 0.5 MG Temazepam (Restoril) 30 mg HS 02/15/17 21:00 02/17/17 21:35 30 MG Venlafaxine HCl (Effexor) 25 mg DAILY 02/15/17 14:15 02/18/17 08:49 25 MG LAB Lab: Laboratory Tests Test 02/17/17 11:10 02/17/17 11:11 02/17/17 17:01 02/17/17 21:22 Urine Collection Type Unknown Urine Color Yellow Urine Clarity Clear Urine pH 7.5 Urine Specific [place] 1.020 Urine Protein Negative mg/dL (NEG-TRACE) Urine Glucose (UA) Negative mg/dL (NEG) Urine Ketones (Stick) Negative mg/dL (NEG) Urine Blood Negative (NEG) Urine Nitrite Negative (NEG) Urine Bilirubin Negative (NEG) Urine Urobilinogen Dipstick 1.0 mg/dL (0.2 mg/dL) Urine Leukocyte Esterase Trace (NEG) Urine RBC 0 /HPF (0-2) Urine WBC 1-4 /HPF (0-4) Urine Squamous Epithelial Cells Many /LPF Urine Bacteria Few /HPF (0-FEW) Glucose (Fingerstick) 104 mg/dL (70-99) 146 mg/dL (70-99) 119 mg/dL (70-99) Test 02/18/17 07:58 Glucose (Fingerstick) 136 mg/dL (70-99) ITALO SUNG MD Feb 18, 2017 10:35
--- NOTE | 2017-02-18 14:18 | DS ---
DATE OF DISCHARGE: 02/18/2017 PRIMARY DIAGNOSIS: Hyperglycemia likely due to viral infection, present on admission. ADDITIONAL DIAGNOSES: 1. Cough, status post cerebrovascular accident with hemiparesis and aphasia. 2. Longstanding diabetes mellitus. 3. Toxic encephalopathy. CHIEF COMPLAINT AND HISTORY OF PRESENT ILLNESS: This 61-year-old white female was admitted with some encephalopathic changes as well as a couple of days of higher blood sugars with her suspecting a urine infection from prior history. She also had a cough in addition that was new. SUMMARY OF STAY: The patient was admitted. Laboratory was essentially normal as was UA. Chest x-ray was normal. Sugars were higher and improved during her stay. She did receive Rocephin IV during the stay with no offending agents and the sugars improved. It was felt she could return home back on her regular home tube feeding and bedbound status on the day of discharge and this was accomplished. DISPOSITION: The patient is discharged to home tube feedings as prior, activity with help. She is to resume her regular home medications and followup will be as a home visit as needed. ITALO SUNG MD DR: MADELYN/reno JOB#: [id number] / [id number]
[2017-02-20] MEDS ORDERED: cloNIDine TTS-3 1 PATCH PATCH.TDWK TD SCH (09:00)
[2017-04-06] MEDS ORDERED: DIPH1TAB PO (11:45)
[2017-04-06] MEDS ORDERED: INSU100V13 SQ (11:45)
[2017-04-06] MEDS ORDERED: ACET-706 PO (11:45)
[2017-04-06] MEDS ORDERED: LACT1CAP8 PO (12:45)
== END 2017-02-18 13:05 | disposition home or self-care (01) | DRG 865 ==
LOC: 5 NORTH 10:22
PROVIDERS: ADMIT Family Medicine; ATTEND Family Medicine
DX: B34.9 Viral infection, unspecified (principal); G92 Toxic encephalopathy; E11.65 Type 2 diabetes mellitus with hyperglycemia; I69.359 Hemiplegia and hemiparesis following cerebral infarction affecting unspecified side; N39.0 Urinary tract infection, site not specified; Z93.1 Gastrostomy status; E03.9 Hypothyroidism, unspecified; I10 Essential (primary) hypertension; F32.9 Major depressive disorder, single episode, unspecified; Z79.4 Long term (current) use of insulin; Z90.710 Acquired absence of both cervix and uterus; Z74.01 Bed confinement status; I69.320 Aphasia following cerebral infarction; Z88.0 Allergy status to penicillin; Z88.8 Allergy status to other drugs, medicaments and biological substances
CPT/HCPCS: 36415; 71010; 80053; 81001; 82962; 85025; 85045; 87086; 87186; 87641; J0696; J1815; P9612

== ENCOUNTER 2017-02-15 10:22 | Emergency (ER) | payer MEDICARE, OTHER ==
[~2017-02-15] VITALS: Ht 152.4 cm; Wt 63.0 kg
[2017-02-15 10:47] LABS: BILIRUBIN,URINE NEGATIVE (NEG); GLUCOSE,URINE NEGATIVE (NEG); NITRITE,URINE NEGATIVE (NEG); PROTEIN,URINE NEGATIVE (NEG-TRACE); UROBILINOGEN,URINE 0.2 mg/dL (0.2 mg/dL)
[2017-02-15 10:54] VITALS: BP 153/76
[2017-02-15 10:59] LABS: BACTERIA,URINE 0 /HPF (0-FEW); RBC,URINE OCC /HPF (0-2); SQUAMOUS EPITHELIAL CELL,UR MOD /LPF
[2017-02-15] MEDS ORDERED: ONDA4TAB12 PO (12:06)
--- NOTE | 2017-02-20 16:14 | VNOTE ---
CALL BACK NOTE CALL BACK Microbiology 02/15/17 Urine Culture - Final, Complete 02/15/17 Urine Culture Result 1 (SHIMA) - Final, Complete 02/15/17 Antimicrobic Susceptibility - Final, Complete Spoke with patients . Macrobid 100 mg tablets. BID x 7 days. Disp 14. Called into pharmacy of their choice at [phone]. SHREYAS FINLEY Feb 20, 2017 16:14
== END 2017-02-15 10:55 | disposition home or self-care (01) ==
LOC: ER 10:22
DX: Z53.9 Procedure and treatment not carried out, unspecified reason (principal)
CPT/HCPCS: 81001; 82962; 87086; 87186; 99284; P9612

== ENCOUNTER 2017-04-01 15:27 | Emergency (ER) | payer MEDICARE, OTHER ==
[2017-04-01 17:10] LABS: ANION GAP 13 (6-14); BLOOD UREA NITROGEN 24 mg/dL (7-20); BUN/CREATININE RATIO 80 (6-20); CALCIUM 9.1 mg/dL (8.5-10.1); CARBON DIOXIDE 24 mmol/L (21-32); CHLORIDE 97 mmol/L (98-107); CREATININE 0.3 mg/dL (0.6-1.0); GFR 225.4; GLUCOSE 56 mg/dL (70-99); POTASSIUM 4.3 mmol/L (3.5-5.1); SODIUM 134 mmol/L (136-145)
[2017-04-01 17:12] LABS: ADD MAN DIFF? NO
[2017-04-01 17:15] LABS: BASO # 0.1 x10^3/uL (0.0-0.2); BASO % 1 % (0-3); EOS % 3 % (0-3); HEMATOCRIT 43.9 % (36.0-47.0); HEMOGLOBIN 14.4 g/dL (12.0-15.5); LYMPH # 2.7 x10^3/uL (1.0-4.8); LYMPH % 21 % (24-48); MEAN CORPUSCULAR HEMOGLOBIN 28 pg (25-35); MEAN CORPUSCULAR HGB CONC 33 g/dL (31-37); MEAN CORPUSCULAR VOLUME 85 fL (79-100); MONO % 7 % (0-9); NEUT % 68 % (31-73); PLATELET COUNT 276 x10^3/uL (140-400); RED BLOOD COUNT 5.15 x10^6/uL (3.50-5.40); RED CELL DISTRIBUTION WIDTH 15.3 % (11.5-14.5)
[2017-04-01 17:17] LABS: ALBUMIN 3.5 g/dL (3.4-5.0); ALBUMIN/GLOBULIN RATIO 0.7 (1.0-1.7); ALK PHOS 103 U/L (46-116); ALT (SGPT) 14 U/L (14-59); AST (SGOT) 26 U/L (15-37); TOTAL BILIRUBIN 0.3 mg/dL (0.2-1.0); TOTAL PROTEIN 8.7 g/dL (6.4-8.2)
[2017-04-01 17:23] LABS: C-REACTIVE PROTEIN < 0.0 mg/L (0-3.3)
[2017-04-01] MEDS: NEOMY/BACITR/POLYMYXIN OINT PACKET. TP (18:25)
[2017-04-01 20:50] LABS: POC GLUCOSE 90 mg/dL (70-99)
== END 2017-04-01 21:26 | disposition home or self-care (01) ==
LOC: ER 15:27
DX: L98.499 Non-pressure chronic ulcer of skin of other sites with unspecified severity (principal); M19.90 Unspecified osteoarthritis, unspecified site; I10 Essential (primary) hypertension; Z86.73 Personal history of transient ischemic attack (TIA), and cerebral infarction without residual deficits; Z88.0 Allergy status to penicillin; Z98.41 Cataract extraction status, right eye; Z88.1 Allergy status to other antibiotic agents; Z88.5 Allergy status to narcotic agent; Z91.041 Radiographic dye allergy status
CPT/HCPCS: 36415; 80053; 82962; 85025; 86140; 87070; 87186; 87205; 99284

== ENCOUNTER 2017-04-04 21:00 | Inpatient (IN) | payer MEDICARE, OTHER ==
[2017-04-04] MEDS: IV NORMAL SALINE 500ML BAG 500 ML IV (21:30)
[2017-04-04 21:39] LABS: POC GLUCOSE 79 mg/dL (70-99)
[2017-04-04] MEDS ORDERED: ERTAPENEM 1GM IVPB FOR OMNI 50 ML IV (21:45)
[2017-04-04 21:54] LABS: ADD MAN DIFF? NO
[2017-04-04 21:56] LABS: BASO # 0.1 x10^3/uL (0.0-0.2); BASO % 1 % (0-3); EOS # 0.6 x10^3/uL (0.0-0.7); EOS % 7 % (0-3); HEMATOCRIT 39.4 % (36.0-47.0); HEMOGLOBIN 12.9 g/dL (12.0-15.5); LYMPH # 2.9 x10^3/uL (1.0-4.8); LYMPH % 34 % (24-48); MEAN CORPUSCULAR HEMOGLOBIN 28 pg (25-35); MEAN CORPUSCULAR HGB CONC 33 g/dL (31-37); MEAN CORPUSCULAR VOLUME 86 fL (79-100); MONO # 0.7 x10^3/uL (0.0-1.1); MONO % 8 % (0-9); NEUT # 4.4 x10^3uL (1.8-7.7); NEUT % 51 % (31-73); PLATELET COUNT 238 x10^3/uL (140-400); RED BLOOD COUNT 4.58 x10^6/uL (3.50-5.40); RED CELL DISTRIBUTION WIDTH 14.9 % (11.5-14.5); WHITE BLOOD COUNT 8.7 x10^3/uL (4.0-11.0)
[2017-04-04] MEDS ORDERED: ACETAMINOPHEN 325 MG TABLET. PO (22:00)
[2017-04-04 22:14] LABS: ANION GAP 8 (6-14); BLOOD UREA NITROGEN 31 mg/dL (7-20); BUN/CREATININE RATIO 62 (6-20); CARBON DIOXIDE 30 mmol/L (21-32); CHLORIDE 100 mmol/L (98-107); CREATININE 0.5 mg/dL (0.6-1.0); GLUCOSE 88 mg/dL (70-99); POTASSIUM 4.6 mmol/L (3.5-5.1); SODIUM 138 mmol/L (136-145)
[2017-04-04] MEDS: ONDANSETRON PF 4 MG/2 ML VIAL. IV (22:16)
[2017-04-04] MEDS: MEROPENEM IV Push 1 GM VIAL. IVP (22:16)
[2017-04-04] MEDS: fentaNYL PF VIAL 100 MCG/2 ML VIAL IV (22:17)
[2017-04-04 22:20] LABS: ALBUMIN 3.2 g/dL (3.4-5.0); ALBUMIN/GLOBULIN RATIO 0.8 (1.0-1.7); ALK PHOS 89 U/L (46-116); AST (SGOT) 15 U/L (15-37); TOTAL BILIRUBIN 0.3 mg/dL (0.2-1.0)
[2017-04-04 22:46] LABS: ALT (SGPT) 16 U/L (14-59)
[2017-04-04 23:56] LABS: POC GLUCOSE 99 mg/dL (70-99)
[2017-04-05] MEDS ORDERED: ACETAMINOPHEN WITH CODEINE PO (00:15)
[2017-04-05] MEDS ORDERED: ONDANSETRON ODT 4 MG TAB.RAPDIS. PO (00:15)
[2017-04-05] MEDS ORDERED: ACETAMINOPHEN 650 MG/20.3 ML SOLUTION. PO (01:14)
[2017-04-05] MEDS ORDERED: ACETAMINOPHEN 650 MG/20.3 ML SOLUTION. PEG (01:15)
[2017-04-05] MEDS ORDERED: ONDANSETRON ODT 4 MG TAB.RAPDIS. PEG (01:17)
[2017-04-05] MEDS: LEVOTHYROXINE 25 MCG TABLET. PEG (05:41)
[2017-04-05] MEDS: ACETAMINOPHEN 650 MG/20.3 ML SOLUTION. PEG ×3 (05:41→17:22)
[2017-04-05 05:48] LABS: ADD MAN DIFF? NO
[2017-04-05 05:53] LABS: BASO # 0.1 x10^3/uL (0.0-0.2); BASO % 1 % (0-3); EOS # 0.6 x10^3/uL (0.0-0.7); EOS % 8 % (0-3); HEMATOCRIT 37.8 % (36.0-47.0); HEMOGLOBIN 12.2 g/dL (12.0-15.5); LYMPH # 2.7 x10^3/uL (1.0-4.8); LYMPH % 32 % (24-48); MEAN CORPUSCULAR HEMOGLOBIN 28 pg (25-35); MEAN CORPUSCULAR HGB CONC 32 g/dL (31-37); MEAN CORPUSCULAR VOLUME 87 fL (79-100); MONO # 0.7 x10^3/uL (0.0-1.1); MONO % 8 % (0-9); NEUT # 4.2 x10^3uL (1.8-7.7); NEUT % 51 % (31-73); PLATELET COUNT 222 x10^3/uL (140-400); RED BLOOD COUNT 4.34 x10^6/uL (3.50-5.40); RED CELL DISTRIBUTION WIDTH 15.1 % (11.5-14.5); WHITE BLOOD COUNT 8.3 x10^3/uL (4.0-11.0)
[2017-04-05 06:31] LABS: ANION GAP 8 (6-14); BLOOD UREA NITROGEN 24 mg/dL (7-20); CALCIUM 8.9 mg/dL (8.5-10.1); CARBON DIOXIDE 29 mmol/L (21-32); CREATININE 0.4 mg/dL (0.6-1.0); GFR 161.7; GLUCOSE 130 mg/dL (70-99)
[2017-04-05 06:35] LABS: CHLORIDE 103 mmol/L (98-107); SODIUM 140 mmol/L (136-145)
[2017-04-05 06:40] LABS: POTASSIUM 3.7 mmol/L (3.5-5.1)
[2017-04-05 07:52] LABS: POC GLUCOSE 203 mg/dL (70-99)
[2017-04-05] MEDS ORDERED: DEXTROSE 50% 25 GM / 50ML DISP.SYRIN. IV (08:00)
[2017-04-05] MEDS: LANSOPRAZOLE 30 MG TAB.RAP.DR PEG ×2 (08:29→21:38)
[2017-04-05] MEDS: VENLAFAXINE 50 MG TABLET. PEG (08:30)
[2017-04-05] MEDS: POTASSIUM CHLORIDE 20 MEQ/15 ML ORAL LIQUID. PEG (08:30)
[2017-04-05] MEDS: NITROGLYCERIN 0.2MG/HR PATCH. TD (08:31)
[2017-04-05] MEDS: amLODIPine BESYLATE 10 MG TABLET PEG (08:32)
[2017-04-05] MEDS: METOPROLOL TART IMMED RELEASE 50 MG TABLET. PEG ×2 (08:32→21:00)
[2017-04-05] MEDS: INSULIN ASPART 300 UNITS/3 ML INSULN.PEN SQ ×3 (08:37→17:12)
[2017-04-05 11:25] LABS: POC GLUCOSE 172 mg/dL (70-99)
[2017-04-05] MEDS ORDERED: MEROPENEM 500 MG in IV NORMAL SALINE 50ML 50 ML IV (14:00)
[2017-04-05] MEDS: MEROPENEM IV Push 500 MG VIAL. IVP ×2 (14:17→21:39)
[2017-04-05] MEDS: ACETAMINOPHEN/CODEINE 300/30MG TABLET. PO (14:17)
[2017-04-05 16:29] LABS: POC GLUCOSE 172 mg/dL (70-99)
[2017-04-05] MEDS: NYSTATIN TOPICAL POWDER 15GM BOTTLE. TP (17:09)
[2017-04-05] MEDS: INSULIN DETEMIR 300 UNITS/3 ML INSULN.PEN. SQ ×2 (21:00→22:00)
[2017-04-05 21:04] LABS: POC GLUCOSE 145 mg/dL (70-99)
[2017-04-05] MEDS: rOPINIRole 0.25 MG TABLET. PEG (21:37)
[2017-04-05] MEDS: TEMAZEPAM 15 MG CAPSULE PO (21:38)
[2017-04-06] MEDS: MEROPENEM IV Push 500 MG VIAL. IVP ×3 (05:45→22:00)
[2017-04-06] MEDS: LEVOTHYROXINE 25 MCG TABLET. PEG (05:46)
[2017-04-06] MEDS: ACETAMINOPHEN 650 MG/20.3 ML SOLUTION. PEG ×3 (05:46→12:00)
[2017-04-06 08:03] LABS: POC GLUCOSE 144 mg/dL (70-99)
[2017-04-06] MEDS: VENLAFAXINE 50 MG TABLET. PEG (08:39)
[2017-04-06] MEDS: METOPROLOL TART IMMED RELEASE 50 MG TABLET. PEG ×2 (08:40→22:14)
[2017-04-06] MEDS: LANSOPRAZOLE 30 MG TAB.RAP.DR PEG ×2 (08:40→22:13)
[2017-04-06] MEDS: amLODIPine BESYLATE 10 MG TABLET PEG (08:40)
[2017-04-06] MEDS: NITROGLYCERIN 0.2MG/HR PATCH. TD (09:06)
[2017-04-06] MEDS: DIPHENOXYLATE/ATROPINE TABLET. PEG (09:29)
[2017-04-06] MEDS: POTASSIUM CHLORIDE 20 MEQ/15 ML ORAL LIQUID. PEG (09:29)
[2017-04-06] MEDS: ACETAMINOPHEN/CODEINE 300/30MG TABLET. PO ×3 (09:29→22:13)
[2017-04-06] MEDS: CODEINE SULFATE 30 MG TABLET. PO ×3 (09:29→22:11)
[2017-04-06] MEDS: INSULIN ASPART 300 UNITS/3 ML INSULN.PEN SQ ×3 (09:48→18:27)
[2017-04-06] MEDS: DIPHENOXYLATE/ATROPINE TABLET. PO ×3 (12:48→22:12)
[2017-04-06 13:00] LABS: POC GLUCOSE 143 mg/dL (70-99)
[2017-04-06] MEDS ORDERED: ACETAMINOPHEN/CODEINE 300/30MG TABLET. PO (14:00)
[2017-04-06] MEDS: LACTOBACILLUS RHAMNOSUS GG 1 CAPSULE. PO (17:44)
[2017-04-06 21:32] LABS: POC GLUCOSE 155 mg/dL (70-99)
[2017-04-06] MEDS: rOPINIRole 0.25 MG TABLET. PEG (22:11)
[2017-04-06] MEDS: TEMAZEPAM 15 MG CAPSULE PO (22:12)
[2017-04-06] MEDS: INSULIN DETEMIR 300 UNITS/3 ML INSULN.PEN. SQ (22:19)
[2017-04-06 22:53] LABS: POC GLUCOSE 144 mg/dL (70-99)
[2017-04-07] MEDS: MEROPENEM IV Push 500 MG VIAL. IVP ×3 (06:13→21:57)
[2017-04-07] MEDS: LEVOTHYROXINE 25 MCG TABLET. PEG (06:13)
[2017-04-07 08:26] LABS: POC GLUCOSE 193 mg/dL (70-99)
[2017-04-07] MEDS: DIPHENOXYLATE/ATROPINE TABLET. PO ×4 (10:30→22:00)
[2017-04-07] MEDS: ACETAMINOPHEN/CODEINE 300/30MG TABLET. PO ×3 (10:30→22:00)
[2017-04-07] MEDS: CODEINE SULFATE 30 MG TABLET. PO ×3 (10:30→22:00)
[2017-04-07] MEDS: LANSOPRAZOLE 30 MG TAB.RAP.DR PEG ×2 (10:31→22:02)
[2017-04-07] MEDS: amLODIPine BESYLATE 10 MG TABLET PEG (10:31)
[2017-04-07] MEDS: LACTOBACILLUS RHAMNOSUS GG 1 CAPSULE. PO (10:31)
[2017-04-07] MEDS: VENLAFAXINE 50 MG TABLET. PEG (10:32)
[2017-04-07] MEDS: METOPROLOL TART IMMED RELEASE 50 MG TABLET. PEG ×2 (10:33→22:02)
[2017-04-07] MEDS: POTASSIUM CHLORIDE 20 MEQ/15 ML ORAL LIQUID. PEG (10:33)
[2017-04-07] MEDS: NITROGLYCERIN 0.2MG/HR PATCH. TD (10:33)
[2017-04-07] MEDS: INSULIN ASPART 300 UNITS/3 ML INSULN.PEN SQ ×3 (11:05→18:10)
[2017-04-07 14:35] LABS: POC GLUCOSE 153 mg/dL (70-99)
[2017-04-07 16:59] LABS: POC GLUCOSE 139 mg/dL (70-99)
[2017-04-07 21:32] LABS: POC GLUCOSE 143 mg/dL (70-99)
[2017-04-07] MEDS: TEMAZEPAM 15 MG CAPSULE PO (21:59)
[2017-04-07] MEDS: rOPINIRole 0.25 MG TABLET. PEG (22:01)
[2017-04-07] MEDS: INSULIN DETEMIR 300 UNITS/3 ML INSULN.PEN. SQ (22:04)
[2017-04-08] MEDS: LEVOTHYROXINE 25 MCG TABLET. PEG (05:56)
[2017-04-08] MEDS: MEROPENEM IV Push 500 MG VIAL. IVP ×3 (05:56→22:32)
[2017-04-08] MEDS: INSULIN ASPART 300 UNITS/3 ML INSULN.PEN SQ ×3 (08:00→17:00)
[2017-04-08] MEDS: LANSOPRAZOLE 30 MG TAB.RAP.DR PEG ×2 (09:00→22:34)
[2017-04-08] MEDS: NITROGLYCERIN 0.2MG/HR PATCH. TD (09:00)
[2017-04-08] MEDS: DIPHENOXYLATE/ATROPINE TABLET. PO ×4 (09:00→22:32)
[2017-04-08] MEDS: amLODIPine BESYLATE 10 MG TABLET PEG (09:00)
[2017-04-08] MEDS: METOPROLOL TART IMMED RELEASE 50 MG TABLET. PEG ×2 (09:00→22:34)
[2017-04-08] MEDS: ACETAMINOPHEN/CODEINE 300/30MG TABLET. PO ×3 (09:00→22:33)
[2017-04-08] MEDS: VENLAFAXINE 50 MG TABLET. PEG (09:00)
[2017-04-08] MEDS: CODEINE SULFATE 30 MG TABLET. PO ×3 (09:00→22:33)
[2017-04-08] MEDS: LACTOBACILLUS RHAMNOSUS GG 1 CAPSULE. PO (09:00)
[2017-04-08] MEDS: POTASSIUM CHLORIDE 20 MEQ/15 ML ORAL LIQUID. PEG (09:00)
[2017-04-08 11:11] LABS: POC GLUCOSE 194 mg/dL (70-99)
[2017-04-08 13:44] LABS: POC GLUCOSE 163 mg/dL (70-99)
[2017-04-08] MEDS: CHOLESTYRAMINE/ASPARTAME 4 GM PACKET PEG (13:53)
[2017-04-08] MEDS: VANCOMYCIN 125 MG/2.5 ML ORAL SOLUTION. PEG ×3 (13:53→22:34)
[2017-04-08 17:26] LABS: POC GLUCOSE 89 mg/dL (70-99)
[2017-04-08 21:35] LABS: POC GLUCOSE 149 mg/dL (70-99)
[2017-04-08] MEDS: TEMAZEPAM 15 MG CAPSULE PO (22:32)
[2017-04-08] MEDS: rOPINIRole 0.25 MG TABLET. PEG (22:34)
[2017-04-08] MEDS: INSULIN DETEMIR 300 UNITS/3 ML INSULN.PEN. SQ (22:50)
[2017-04-09] MEDS: MEROPENEM IV Push 500 MG VIAL. IVP (07:07)
[2017-04-09] MEDS: LEVOTHYROXINE 25 MCG TABLET. PEG (07:07)
[2017-04-09] MEDS: INSULIN ASPART 300 UNITS/3 ML INSULN.PEN SQ ×3 (08:00→17:00)
[2017-04-09 08:20] LABS: POC GLUCOSE 75 mg/dL (70-99)
[2017-04-09] MEDS: NITROGLYCERIN 0.2MG/HR PATCH. TD (08:53)
[2017-04-09] MEDS: DIPHENOXYLATE/ATROPINE TABLET. PO ×4 (08:54→21:00)
[2017-04-09] MEDS: METOPROLOL TART IMMED RELEASE 50 MG TABLET. PEG ×2 (08:55→21:00)
[2017-04-09] MEDS: ACETAMINOPHEN/CODEINE 300/30MG TABLET. PO ×3 (08:55→21:00)
[2017-04-09] MEDS: POTASSIUM CHLORIDE 20 MEQ/15 ML ORAL LIQUID. PEG (08:56)
[2017-04-09] MEDS: CODEINE SULFATE 30 MG TABLET. PO ×3 (08:56→21:00)
[2017-04-09] MEDS: VENLAFAXINE 50 MG TABLET. PEG (08:56)
[2017-04-09] MEDS: LACTOBACILLUS RHAMNOSUS GG 1 CAPSULE. PO (08:57)
[2017-04-09] MEDS: LANSOPRAZOLE 30 MG TAB.RAP.DR PEG ×2 (08:57→22:03)
[2017-04-09] MEDS: amLODIPine BESYLATE 10 MG TABLET PEG (08:57)
[2017-04-09] MEDS: CHOLESTYRAMINE/ASPARTAME 4 GM PACKET PEG (08:57)
[2017-04-09] MEDS: VANCOMYCIN 125 MG/2.5 ML ORAL SOLUTION. PEG ×4 (09:01→22:03)
[2017-04-09 12:28] LABS: POC GLUCOSE 86 mg/dL (70-99)
[2017-04-09 16:57] LABS: POC GLUCOSE 111 mg/dL (70-99)
[2017-04-09 21:26] LABS: POC GLUCOSE 105 mg/dL (70-99)
[2017-04-09] MEDS: rOPINIRole 0.25 MG TABLET. PEG (22:03)
[2017-04-09] MEDS: TEMAZEPAM 15 MG CAPSULE PO (22:03)
[2017-04-09] MEDS: INSULIN DETEMIR 300 UNITS/3 ML INSULN.PEN. SQ (22:11)
[2017-04-10] MEDS: LEVOTHYROXINE 25 MCG TABLET. PEG (06:26)
[2017-04-10 08:26] LABS: POC GLUCOSE 132 mg/dL (70-99)
[2017-04-10] MEDS: LACTOBACILLUS RHAMNOSUS GG 1 CAPSULE. PO (10:16)
[2017-04-10] MEDS: amLODIPine BESYLATE 10 MG TABLET PEG (10:17)
[2017-04-10] MEDS: CODEINE SULFATE 30 MG TABLET. PO ×3 (10:18→20:54)
[2017-04-10] MEDS: DIPHENOXYLATE/ATROPINE TABLET. PO ×4 (10:18→20:52)
[2017-04-10] MEDS: ACETAMINOPHEN/CODEINE 300/30MG TABLET. PO ×3 (10:18→20:53)
[2017-04-10] MEDS: VENLAFAXINE 50 MG TABLET. PEG (10:19)
[2017-04-10] MEDS: LANSOPRAZOLE 30 MG TAB.RAP.DR PEG ×2 (10:19→21:00)
[2017-04-10] MEDS: POTASSIUM CHLORIDE 20 MEQ/15 ML ORAL LIQUID. PEG (10:19)
[2017-04-10] MEDS: VANCOMYCIN 125 MG/2.5 ML ORAL SOLUTION. PEG ×4 (10:20→21:07)
[2017-04-10] MEDS: METOPROLOL TART IMMED RELEASE 50 MG TABLET. PEG ×2 (10:20→20:53)
[2017-04-10] MEDS: CHOLESTYRAMINE/ASPARTAME 4 GM PACKET PEG (10:20)
[2017-04-10] MEDS: NITROGLYCERIN 0.2MG/HR PATCH. TD (10:21)
[2017-04-10] MEDS: cloNIDine TTS-3 1 PATCH PATCH.TDWK TD (10:22)
[2017-04-10] MEDS: INSULIN ASPART 300 UNITS/3 ML INSULN.PEN SQ ×3 (10:47→17:00)
[2017-04-10 12:29] LABS: POC GLUCOSE 147 mg/dL (70-99)
[2017-04-10 15:18] LABS: C DIFF BY PCR Negative (Negative)
[2017-04-10 16:56] LABS: POC GLUCOSE 138 mg/dL (70-99)
[2017-04-10 18:54] LABS: POC GLUCOSE 115 mg/dL (70-99)
[2017-04-10] MEDS: TEMAZEPAM 15 MG CAPSULE PO (20:52)
[2017-04-10] MEDS: rOPINIRole 0.25 MG TABLET. PEG (20:52)
[2017-04-10 20:54] LABS: POC GLUCOSE 119 mg/dL (70-99)
[2017-04-10] MEDS: INSULIN DETEMIR 300 UNITS/3 ML INSULN.PEN. SQ (21:14)
[2017-04-11] MEDS: LEVOTHYROXINE 25 MCG TABLET. PEG (06:05)
[2017-04-11] MEDS: INSULIN ASPART 300 UNITS/3 ML INSULN.PEN SQ ×2 (08:00→12:00)
[2017-04-11 08:41] LABS: POC GLUCOSE 59 mg/dL (70-99)
[2017-04-11] MEDS: POTASSIUM CHLORIDE 20 MEQ/15 ML ORAL LIQUID. PEG (09:13)
[2017-04-11] MEDS: LANSOPRAZOLE 30 MG TAB.RAP.DR PEG (09:13)
[2017-04-11] MEDS: VANCOMYCIN 125 MG/2.5 ML ORAL SOLUTION. PEG ×2 (09:14→13:45)
[2017-04-11] MEDS: ACETAMINOPHEN/CODEINE 300/30MG TABLET. PO ×2 (09:14→13:45)
[2017-04-11] MEDS: CODEINE SULFATE 30 MG TABLET. PO ×2 (09:14→13:45)
[2017-04-11] MEDS: DIPHENOXYLATE/ATROPINE TABLET. PO ×2 (09:14→13:45)
[2017-04-11] MEDS: VENLAFAXINE 50 MG TABLET. PEG (09:14)
[2017-04-11] MEDS: LACTOBACILLUS RHAMNOSUS GG 1 CAPSULE. PO (09:15)
[2017-04-11] MEDS: amLODIPine BESYLATE 10 MG TABLET PEG (09:15)
[2017-04-11] MEDS: METOPROLOL TART IMMED RELEASE 50 MG TABLET. PEG (09:16)
[2017-04-11] MEDS: NITROGLYCERIN 0.2MG/HR PATCH. TD (09:16)
[2017-04-11] MEDS: CHOLESTYRAMINE/ASPARTAME 4 GM PACKET PEG (10:00)
[2017-04-11 10:13] LABS: POC GLUCOSE 101 mg/dL (70-99)
[2017-04-11 13:00] LABS: POC GLUCOSE 121 mg/dL (70-99)
== END 2017-04-11 15:30 | disposition home health service (06) | DRG 605 ==
LOC: 4 NORTH 04-10 05:26 → ER 21:00 → ED HOLD 21:28 → 4 NORTH 23:19
PROVIDERS: Family Medicine
DX: S01.00XA Unspecified open wound of scalp, initial encounter (principal); I69.354 Hemiplegia and hemiparesis following cerebral infarction affecting left non-dominant side; B96.89 Other specified bacterial agents as the cause of diseases classified elsewhere; D72.829 Elevated white blood cell count, unspecified; E11.9 Type 2 diabetes mellitus without complications; E03.9 Hypothyroidism, unspecified; G25.81 Restless legs syndrome; I10 Essential (primary) hypertension; I25.10 Atherosclerotic heart disease of native coronary artery without angina pectoris; Z16.24 Resistance to multiple antibiotics; Z79.4 Long term (current) use of insulin; Z90.710 Acquired absence of both cervix and uterus; I69.320 Aphasia following cerebral infarction; Z88.1 Allergy status to other antibiotic agents; Z88.0 Allergy status to penicillin; Z88.2 Allergy status to sulfonamides; Z88.8 Allergy status to other drugs, medicaments and biological substances
CPT/HCPCS: 36415; 80048; 80053; 82962; 85025; 86140; 87070; 87186; 87205; 87324; 96361; 96374; 96375; 99285; 99285-25; J1815; J2185; J2405; J3010; J7040

== ENCOUNTER 2017-07-12 15:09 | Emergency (ER) | payer MEDICARE, OTHER | END 2017-07-12 18:39 | disposition home or self-care (01) | LOC: ER 15:09 | DX: L89.899 Pressure ulcer of other site, unspecified stage (principal); E11.9 Type 2 diabetes mellitus without complications; Z86.73 Personal history of transient ischemic attack (TIA), and cerebral infarction without residual deficits; I11.9 Hypertensive heart disease without heart failure; Z16.24 Resistance to multiple antibiotics; Z88.0 Allergy status to penicillin; Z88.2 Allergy status to sulfonamides; Z88.1 Allergy status to other antibiotic agents; Z88.5 Allergy status to narcotic agent; Z91.041 Radiographic dye allergy status | CPT/HCPCS: 99284 ==

== ENCOUNTER 2017-07-19 14:58 | Emergency (ER) | payer MEDICARE, OTHER ==
[2017-07-19 17:11] LABS: BILIRUBIN,URINE NEGATIVE (NEG); CLARITY,URINE CLEAR; GLUCOSE,URINE NEGATIVE (NEG); NITRITE,URINE NEGATIVE (NEG); PROTEIN,URINE NEGATIVE (NEG-TRACE)
[2017-07-19 17:21] LABS: BACTERIA,URINE MODERATE /HPF (0-FEW); COLOR,URINE STRAW; RBC,URINE RARE /HPF (0-2); SQUAMOUS EPITHELIAL CELL,UR MOD /LPF
[2017-07-19 17:33] LABS: ADD MAN DIFF? NO
[2017-07-19 17:39] LABS: BASO # 0.1 x10^3/uL (0.0-0.2); BASO % 1 % (0-3); EOS # 0.2 x10^3/uL (0.0-0.7); EOS % 2 % (0-3); HEMATOCRIT 40.9 % (36.0-47.0); HEMOGLOBIN 13.5 g/dL (12.0-15.5); LYMPH # 1.9 x10^3/uL (1.0-4.8); LYMPH % 15 % (24-48); MEAN CORPUSCULAR HEMOGLOBIN 28 pg (25-35); MEAN CORPUSCULAR HGB CONC 33 g/dL (31-37); MEAN CORPUSCULAR VOLUME 85 fL (79-100); MONO % 8 % (0-9); NEUT # 9.4 x10^3uL (1.8-7.7); NEUT % 75 % (31-73); PLATELET COUNT 331 x10^3/uL (140-400); RED BLOOD COUNT 4.81 x10^6/uL (3.50-5.40); RED CELL DISTRIBUTION WIDTH 13.9 % (11.5-14.5); WHITE BLOOD COUNT 12.6 x10^3/uL (4.0-11.0)
[2017-07-19 17:47] LABS: ANION GAP 12 (6-14); BLOOD UREA NITROGEN 21 mg/dL (7-20); CALCIUM 9.4 mg/dL (8.5-10.1); CARBON DIOXIDE 28 mmol/L (21-32); CHLORIDE 100 mmol/L (98-107); CREATININE 0.3 mg/dL (0.6-1.0); GFR 225.4; GLUCOSE 60 mg/dL (70-99); POTASSIUM 4.3 mmol/L (3.5-5.1); SODIUM 140 mmol/L (136-145)
[2017-07-19 17:48] LABS: INR 0.9 (0.8-1.1); PROTHROMBIN TIME PATIENT 11.6 SEC (11.7-14.0)
[2017-07-19 17:52] LABS: ALBUMIN 3.4 g/dL (3.4-5.0); ALK PHOS 114 U/L (46-116); ALT (SGPT) 19 U/L (14-59); AST (SGOT) 24 U/L (15-37); DIRECT BILIRUBIN 0.1 mg/dL (0.0-0.2); LIPASE 48 U/L (73-393); MAGNESIUM 2.1 mg/dL (1.8-2.4); TOTAL BILIRUBIN 0.3 mg/dL (0.2-1.0); TOTAL PROTEIN 8.1 g/dL (6.4-8.2)
[2017-07-19 17:58] LABS: TROPONINI < 0.017 ng/mL (0.000-0.055)
[2017-07-19 18:01] LABS: CKMB MASS 0.6 ng/mL (0.0-3.6); CREATINE KINASE 55 U/L (26-192)
[2017-07-19 18:01] LABS: NT-PRO BNP 250 pg/mL (0-124)
== END 2017-07-19 19:05 | disposition home or self-care (01) ==
LOC: ER 14:58
DX: S01.00XA Unspecified open wound of scalp, initial encounter (principal); N30.00 Acute cystitis without hematuria; E11.9 Type 2 diabetes mellitus without complications; I11.9 Hypertensive heart disease without heart failure; Z88.1 Allergy status to other antibiotic agents; Z88.5 Allergy status to narcotic agent; Z88.2 Allergy status to sulfonamides; Z88.0 Allergy status to penicillin; Z90.710 Acquired absence of both cervix and uterus; Z91.041 Radiographic dye allergy status; Z86.73 Personal history of transient ischemic attack (TIA), and cerebral infarction without residual deficits; X58.XXXA Exposure to other specified factors, initial encounter; Y93.89 Activity, other specified; Y92.89 Other specified places as the place of occurrence of the external cause; Y99.8 Other external cause status
CPT/HCPCS: 36415; 51701; 71045; 80048; 80076; 81001; 82553; 83690; 83735; 83880; 84484; 85025; 85610; 87071; 87075; 87086; 87205; 93005; 99285-25

== ENCOUNTER → 2017-07-25 | Outpatient (CLI) | payer MEDICARE, OTHER | END | disposition home or self-care (01) | LOC: PMGWOUND 09:40 | DX: E11.622 Type 2 diabetes mellitus with other skin ulcer (principal); L98.491 Non-pressure chronic ulcer of skin of other sites limited to breakdown of skin; L89.814 Pressure ulcer of head, stage 4; I11.9 Hypertensive heart disease without heart failure; Z86.73 Personal history of transient ischemic attack (TIA), and cerebral infarction without residual deficits; Z90.710 Acquired absence of both cervix and uterus | CPT/HCPCS: 97597 ==

== ENCOUNTER → 2017-08-01 | Outpatient (CLI) | payer MEDICARE, OTHER | END | disposition home or self-care (01) | LOC: PMGWOUND 10:54 | DX: E11.622 Type 2 diabetes mellitus with other skin ulcer (principal); L98.491 Non-pressure chronic ulcer of skin of other sites limited to breakdown of skin; L89.814 Pressure ulcer of head, stage 4; I11.9 Hypertensive heart disease without heart failure; Z86.73 Personal history of transient ischemic attack (TIA), and cerebral infarction without residual deficits; Z90.710 Acquired absence of both cervix and uterus | CPT/HCPCS: 99214 ==

== ENCOUNTER → 2017-08-15 | Outpatient (CLI) | payer MEDICARE, OTHER | END | disposition home or self-care (01) | LOC: PMGWOUND 09:10 | DX: E11.622 Type 2 diabetes mellitus with other skin ulcer (principal); L98.491 Non-pressure chronic ulcer of skin of other sites limited to breakdown of skin; L89.814 Pressure ulcer of head, stage 4; I11.9 Hypertensive heart disease without heart failure; Z86.73 Personal history of transient ischemic attack (TIA), and cerebral infarction without residual deficits; Z90.710 Acquired absence of both cervix and uterus | CPT/HCPCS: 99214 ==

== ENCOUNTER → 2017-08-29 | Outpatient (CLI) | payer MEDICARE, OTHER | END | disposition home or self-care (01) | LOC: PMGWOUND 08:52 | DX: E11.622 Type 2 diabetes mellitus with other skin ulcer (principal); L98.491 Non-pressure chronic ulcer of skin of other sites limited to breakdown of skin; L89.814 Pressure ulcer of head, stage 4; I11.9 Hypertensive heart disease without heart failure; Z86.73 Personal history of transient ischemic attack (TIA), and cerebral infarction without residual deficits; Z90.710 Acquired absence of both cervix and uterus | CPT/HCPCS: 97597 ==

== ENCOUNTER → 2017-09-12 | Outpatient (CLI) | payer MEDICARE, OTHER | END | disposition home or self-care (01) | LOC: PMGWOUND 09:00 | DX: E11.622 Type 2 diabetes mellitus with other skin ulcer (principal); L89.814 Pressure ulcer of head, stage 4; L98.491 Non-pressure chronic ulcer of skin of other sites limited to breakdown of skin; I11.9 Hypertensive heart disease without heart failure; Z86.73 Personal history of transient ischemic attack (TIA), and cerebral infarction without residual deficits; Z90.710 Acquired absence of both cervix and uterus | CPT/HCPCS: 99213 ==

== ENCOUNTER → 2017-09-26 | Outpatient (CLI) | payer MEDICARE, OTHER | END | disposition home or self-care (01) | LOC: PMGWOUND 08:47 | DX: E11.622 Type 2 diabetes mellitus with other skin ulcer (principal); L89.814 Pressure ulcer of head, stage 4; L98.491 Non-pressure chronic ulcer of skin of other sites limited to breakdown of skin; I11.9 Hypertensive heart disease without heart failure; Z86.73 Personal history of transient ischemic attack (TIA), and cerebral infarction without residual deficits; Z90.710 Acquired absence of both cervix and uterus | CPT/HCPCS: 17250 ==

== ENCOUNTER → 2017-10-10 | Outpatient (CLI) | payer MEDICARE, OTHER | END | disposition home or self-care (01) | LOC: PMGWOUND 09:00 | DX: E11.622 Type 2 diabetes mellitus with other skin ulcer (principal); L89.814 Pressure ulcer of head, stage 4; L98.491 Non-pressure chronic ulcer of skin of other sites limited to breakdown of skin; I11.9 Hypertensive heart disease without heart failure; Z86.73 Personal history of transient ischemic attack (TIA), and cerebral infarction without residual deficits; Z90.710 Acquired absence of both cervix and uterus | CPT/HCPCS: 97597 ==

== ENCOUNTER → 2017-10-24 | Outpatient (CLI) | payer MEDICARE, OTHER | END | disposition home or self-care (01) | LOC: PMGWOUND 09:33 | DX: E11.622 Type 2 diabetes mellitus with other skin ulcer (principal); L89.814 Pressure ulcer of head, stage 4; L98.491 Non-pressure chronic ulcer of skin of other sites limited to breakdown of skin; I11.9 Hypertensive heart disease without heart failure; Z86.73 Personal history of transient ischemic attack (TIA), and cerebral infarction without residual deficits; Z90.710 Acquired absence of both cervix and uterus | CPT/HCPCS: 99213 ==

== ENCOUNTER → 2017-11-21 | Outpatient (CLI) | payer MEDICARE, OTHER ==
[2017-11-09 15:00] VITALS: BP 144/65
[~2017-11-21] MED LIST changes: +CLIN300C8 PO; +DIPH1TAB PO; -LABE100T3 PO; +LABE100T5 PO; +LACT1CAP8 PO; +ONDA4TAB12 PO
== END | disposition home or self-care (01) ==
LOC: PMGWOUND 08:58
PROVIDERS: ATTEND Emergency Medicine Undersea and Hyperbaric Medicine
DX: E11.622 Type 2 diabetes mellitus with other skin ulcer (principal); L98.499 Non-pressure chronic ulcer of skin of other sites with unspecified severity; I13.10 Hypertensive heart and chronic kidney disease without heart failure, with stage 1 through stage 4 chronic kidney disease, or unspecified chronic kidney disease; E11.22 Type 2 diabetes mellitus with diabetic chronic kidney disease; N18.9 Chronic kidney disease, unspecified; I10 Essential (primary) hypertension; I25.10 Atherosclerotic heart disease of native coronary artery without angina pectoris; E03.9 Hypothyroidism, unspecified; Z90.710 Acquired absence of both cervix and uterus; Z95.5 Presence of coronary angioplasty implant and graft; Z86.73 Personal history of transient ischemic attack (TIA), and cerebral infarction without residual deficits; Z88.0 Allergy status to penicillin; Z88.1 Allergy status to other antibiotic agents; Z88.2 Allergy status to sulfonamides; Z88.5 Allergy status to narcotic agent; Z88.8 Allergy status to other drugs, medicaments and biological substances
CPT/HCPCS: 99213

== ENCOUNTER 2018-07-24 08:25 | Emergency (ER) | payer MEDICARE, OTHER ==
[~2018-07-24] VITALS: Ht 160 cm; Wt 79.8 kg
[~2018-07-24 08:25] MED LIST changes: +OXYC5TAB4 PEG; -OXYC5TAB95 PEG
--- NOTE | 2018-07-24 08:42 | PHYS DOC ---
Past Medical History Past Medical History: Diabetes-Type II, Heart Disease, Hypertension, Stroke, UTI Additional Past Medical Histor: rectal bleeding Past Surgical History: Hysterectomy Additional Past Surgical Histo: CARPAL TUNNEL, STENT Alcohol Use: None Drug Use: None Adult General Chief Complaint Chief Complaint: GTUBE REPLACEMENT/MALFUNCTION HPI HPI 62 year old F presents for leaking G tube. Has been leaking for 1 week. It was repositioned prior to txf to the ER and it is not currently leaking. Per chart review, pt had her G tube replaced last year by Dr. Barnett. Review of Systems Review of Systems Unable to obtain as pt is nonverbal. Allergies Allergies Allergies Coded Allergies Type Severity Reaction Last Updated Verified Penicillins Allergy Severe Anaphylaxis 01/13/17 Yes cephalexin Allergy Severe 01/13/17 Yes morphine Allergy Intermediate sweating and shaking 01/13/17 Yes sulfamethoxazole Allergy Intermediate 04/05/17 Yes trimethoprim Allergy Intermediate 04/05/17 Yes I S O L A T I O N *CONTACT* Allergy Unknown 01/13/17 Yes Physical Exam Physical Exam Constitutional: Well developed, well nourished, no acute distress, non-toxic appearance. HENT: Normocephalic, atraumatic, bilateral external ears normal, oropharynx moist, no oral exudates, nose normal. Eyes: PERRLA, EOMI, conjunctiva normal, no discharge. Neck: Normal range of motion, no tenderness, supple, no stridor. Cardiovascular:Heart rate regular rhythm, no murmur Lungs & Thorax: Bilateral breath sounds clear to auscultation Abdomen: Bowel sounds normal, soft, no tenderness, no masses, no pulsatile masses. PEG tube in place C/D/I Skin: Warm, dry, no erythema, no rash. Back: No tenderness, no CVA tenderness. Extremities: No tenderness, no cyanosis, no clubbing, ROM intact, no edema. Neurologic: Alert, hemiplegia and contractures are baseline for pt Psychologic: Affect normal, judgement normal, mood normal. Current Patient Data Vital Signs Vital Signs Date Time Temp Pulse Resp B/P (MAP) Pulse Ox O2 Delivery O2 Flow Rate FiO2 07/24/18 10:30 96 16 165/59 (94) 99 Room Air 07/24/18 08:25 98.8 98.8 EKG EKG [] Radiology/Procedures Radiology/Procedures [] Course & Med Decision Making Course & Med Decision Making Pertinent Labs and Imaging studies reviewed. (See chart for details) 62 y/o F with h/o CVA presents for G tube malfunction. Dr. Barnett will exchange G tube as outpt tomorrow. DC back to [place]. Steve Disclaimer Steve Disclaimer This electronic medical record was generated, in whole or in part, using a voice recognition dictation system. Departure Departure Impression: Primary Impression: PEG tube malfunction Disposition: 05 TRANSFER OTHER Condition: GOOD Referrals: ITALO SUNG MD (PCP) Patient Instructions: Gastric Tube Replacement CORTEZ STEVEN MD Jul 24, 2018 08:42
[2018-07-24 10:30] VITALS: BP 165/59
== END 2018-07-24 10:59 | disposition home or self-care (01) ==
LOC: ER 08:25
DX: K94.23 Gastrostomy malfunction (principal); Y83.8 Other surgical procedures as the cause of abnormal reaction of the patient, or of later complication, without mention of misadventure at the time of the procedure; Y92.89 Other specified places as the place of occurrence of the external cause; I11.9 Hypertensive heart disease without heart failure; E11.9 Type 2 diabetes mellitus without complications; Z90.710 Acquired absence of both cervix and uterus; Z86.73 Personal history of transient ischemic attack (TIA), and cerebral infarction without residual deficits; Z87.440 Personal history of urinary (tract) infections; Z88.0 Allergy status to penicillin; Z88.1 Allergy status to other antibiotic agents; Z88.2 Allergy status to sulfonamides; Z88.5 Allergy status to narcotic agent; Z91.041 Radiographic dye allergy status
CPT/HCPCS: 43762; 99284-25

== ENCOUNTER → 2018-07-25 | Day surgery (SDC) | payer MEDICARE, OTHER ==
[~2018-07-25] MED LIST changes: +IV RINGERS,LACTATED 1000ML 1,000 ML IV SCH; +LIDOCAINE 1% PF 2 ML VIAL. ID PRN; +MIDAZOLAM HCL/PF 2 MG/2 ML VIAL. IV PRN; +PROPOFOL 20 ML IV ONE; +fentaNYL PF VIAL 100 MCG/2 ML VIAL IV PRN
[2018-07-25 08:35] VITALS: BP 155/79
--- NOTE | 2018-07-25 15:55 | CONS ---
DATE OF CONSULTATION: 07/25/2018 REASON FOR CONSULTATION: Oropharyngeal dysphagia, dysfunctional G-tube. HISTORY OF PRESENT ILLNESS: A 62-year-old female whose past medical history is significant for CVA with hemiparesis, hypertension, diabetes, hypothyroidism, scalp cellulitis, sepsis, UTI, status post hysterectomy, is seen for PEG replacement. She has had increased difficulties with leakage from the tube recently and new tube is requested. PAST MEDICAL HISTORY: CVA, UTI, diabetes, hypertension, hypothyroidism. ALLERGIES: PENICILLIN, CEPHALEXIN, MORPHINE, SULFAMETHOXAZOLE, TRIMETHOPRIM. MEDICATIONS: Include clonidine, levothyroxine, metoprolol, temazepam and venlafaxine. FAMILY AND SOCIAL HISTORY: She is disabled, nonverbal, nonsmoker, nondrinker. Taken care by her . REVIEW OF SYSTEMS: Per records. PHYSICAL EXAMINATION: VITAL SIGNS: Temperature 99, pulse 110, respirations 20. HEENT: Reveals normocephalic, atraumatic head. Pupils and extraocular movements are not tested. Sclerae anicteric. NECK: Supple. LUNGS: Clear. CARDIOVASCULAR: Reveals S1, S2 without S3, S4 or appreciable murmur. ABDOMEN: Reveals soft abdomen, normal bowel sounds without appreciable hepatosplenomegaly, with left upper quadrant G-tube. EXTREMITIES: Reveals the flexion contractures and muscle atrophy. IMPRESSION: Oropharyngeal dysphagia with dysfunctional gastrostomy tube. PLAN: Recommend EGD with PEG replacement. Risks, benefits discussed. The patient is willing to proceed at this time. GEMA MIXON MD DR: GARRET/reno JOB#: [id number] / [id number] ITALO Armendariz MD
== END | disposition home or self-care (01) ==
LOC: ENDOS 07:05
PROVIDERS: ATTEND Internal Medicine Gastroenterology
DX: K29.50 Unspecified chronic gastritis without bleeding (principal); R13.12 Dysphagia, oropharyngeal phase; I10 Essential (primary) hypertension; E78.5 Hyperlipidemia, unspecified; Z95.5 Presence of coronary angioplasty implant and graft; K21.9 Gastro-esophageal reflux disease without esophagitis; Z86.73 Personal history of transient ischemic attack (TIA), and cerebral infarction without residual deficits; D64.9 Anemia, unspecified; M06.9 Rheumatoid arthritis, unspecified; Z90.710 Acquired absence of both cervix and uterus; Z98.890 Other specified postprocedural states; Z88.0 Allergy status to penicillin; Z88.1 Allergy status to other antibiotic agents; Z88.5 Allergy status to narcotic agent; Z79.899 Other long term (current) drug therapy; Z86.14 Personal history of Methicillin resistant Staphylococcus aureus infection; E11.9 Type 2 diabetes mellitus without complications; E03.9 Hypothyroidism, unspecified; Z87.440 Personal history of urinary (tract) infections; Z79.84 Long term (current) use of oral hypoglycemic drugs
CPT/HCPCS: 43246; J2704

== ENCOUNTER 2018-11-13 13:20 | Emergency (ER) | payer MEDICARE, OTHER ==
[~2018-11-13] VITALS: Ht 165.1 cm; Wt 75.3 kg
[~2018-11-13 13:20] MED LIST changes: -IV RINGERS,LACTATED 1000ML 1,000 ML IV SCH; -LIDOCAINE 1% PF 2 ML VIAL. ID PRN; -MIDAZOLAM HCL/PF 2 MG/2 ML VIAL. IV PRN; -PROPOFOL 20 ML IV ONE; -fentaNYL PF VIAL 100 MCG/2 ML VIAL IV PRN
--- NOTE | 2018-11-13 14:53 | PHYS DOC ---
Past Medical History Past Medical History: Diabetes-Type II, Heart Disease, Hypertension, Hypo thyroid, Stroke, UTI Additional Past Medical Histor: rectal bleeding Past Surgical History: Hysterectomy Additional Past Surgical Histo: CARPAL TUNNEL, STENT, TRACH, GTUBE Alcohol Use: None Drug Use: None Adult General Chief Complaint Chief Complaint: GTUBE REPLACEMENT/MALFUNCTION HPI HPI Pt is unfortunate 62-year-old female with a history of remote severe stroke, which left her with aphasia, and immobile, and dependent on PEG tube feeding. Apparently yesterday, there was some leakage around the PEG tube and it appeared to be withdrawing and there was suspicion from the patient's nursing facility that the balloon had broken. They sent the patient to another hospital, with a although able to place a Bartholomew catheter, and the patient's [id number] states that they were told that she can only get medication but not feedings through the tube, and they were to arrange for outpatient follow-up with GI. However, the patient is unable to eat orally, and is in need of G-tube placement. She has no other complaints at this time. Review of Systems Review of Systems Unable to obtain review of systems, secondary to the patient being nonverbal. Allergies Allergies Allergies Coded Allergies Type Severity Reaction Last Updated Verified Penicillins Allergy Severe Anaphylaxis 07/25/18 Yes cephalexin Allergy Severe 07/25/18 Yes morphine Allergy Intermediate sweating and shaking 07/25/18 Yes sulfamethoxazole Allergy Intermediate 07/25/18 Yes trimethoprim Allergy Intermediate 07/25/18 Yes I S O L A T I O N *CONTACT* Allergy Unknown 07/25/18 Yes Physical Exam Physical Exam PHYSICAL EXAM: CONSTITUTIONAL: Well developed, well nourished HEAD: normocephalic, atraumatic EENT: PERRL, EOMI. Conjunctivae normal color, sclerae non-icteric; moist mucous membranes. NECK: Supple, non-tender; no meningismus. LUNGS: Lungs CTA, breathing even and unlabored. Normal air movement. HEART: Regular rate and rhythm, no murmur CHEST: No deformity; non-tender ABDOMEN: The abdomen is soft, and non-tender, no masses or bruits. There is a Bartholomew catheter in the left upper abdominal G-tube tract. EXTREM: Normal ROM; no deformity, no calf tenderness. Normal pulses palpable in all extremities. There is mild pedal edema. SKIN: No rash; no diaphoresis NEURO: Alert; nonverbal, quadriparesis. EKG EKG [] Radiology/Procedures Radiology/Procedures [] Course & Med Decision Making Course & Med Decision Making PROCEDURE NOTE: Bartholomew catheter was removed, after deflating the balloon, and a 20 Divehi G-tube with a 20 mL balloon was placed, 15 mL of normal saline and infiltrated, tube placement was without difficulty, and GI contents were aspirated easily confirming placement. Patient tolerated the procedure well. I discussed care and follow-up with the patient's [id number]. Dragon Disclaimer Dragon Disclaimer This electronic medical record was generated, in whole or in part, using a voice recognition dictation system. Departure Departure Impression: Primary Impression: PEG tube malfunction Disposition: 01 HOME, SELF-CARE Condition: STABLE Referrals: ITALO SUNG MD (PCP) Patient Instructions: PEG, Home Care, [id number] IZZY MULLEN MD Nov 13, 2018 14:53
[2018-11-13 15:27] VITALS: BP 152/67
== END 2018-11-13 15:25 | disposition home or self-care (01) ==
LOC: ER 13:20
DX: K94.23 Gastrostomy malfunction (principal); E03.9 Hypothyroidism, unspecified; I11.9 Hypertensive heart disease without heart failure; E11.9 Type 2 diabetes mellitus without complications; Z90.710 Acquired absence of both cervix and uterus; Z86.73 Personal history of transient ischemic attack (TIA), and cerebral infarction without residual deficits; Z88.0 Allergy status to penicillin; Z88.1 Allergy status to other antibiotic agents; Z88.5 Allergy status to narcotic agent; Z88.2 Allergy status to sulfonamides; Z91.041 Radiographic dye allergy status
CPT/HCPCS: 43762; 99284

== ENCOUNTER → 2019-02-15 | Day surgery (SDC) | payer MEDICARE, OTHER ==
[~2019-02-15] MED LIST changes: +IV RINGERS,LACTATED 1000ML 1,000 ML IV SCH; +LIDOCAINE 2% PF 5 ML VIAL. ONE; -NITR1PAT5 TD; +NITR1PAT72 TD; +ONDANSETRON PF 4 MG/2 ML VIAL. IV PRN; +PROCHLORPERAZINE 10 MG/2 ML VIAL. IV PRN; +PROPOFOL 20 ML IV ONE; +fentaNYL PF VIAL 100 MCG/2 ML VIAL IV PRN
[2019-02-15 07:50] VITALS: BP 146/65
--- NOTE | 2019-02-15 09:42 | HP ---
ADMIT DATE: 02/15/2019 UPDATED HISTORY AND PHYSICAL REFERRING PHYSICIAN: Earl Jc MD REASON: Dysfunctional G-tube and PEG replacement. HISTORY OF PRESENT ILLNESS: This is a 63-year-old female with past medical history significant for CVA, hemiparesis, hypertension, diabetes, hypothyroidism, sepsis, status post hysterectomy, is seen for PEG replacement. She has had increased difficulties with her replacement tube which has been placed after it was dislodged and EGD with original tube placement is recommended today. PAST MEDICAL HISTORY: CVA, UTI, diabetes, hypertension, hypothyroidism. ALLERGIES: PENICILLIN, CEPHALOSPORIN, MORPHINE, SULFA AND TRIMETHOPRIM. MEDICATIONS: Include clonidine, levothyroxine, metoprolol, temazepam and venlafaxine. FAMILY AND SOCIAL HISTORY: Disabled. Does not drink or smoke at this time. He is now living in a skilled nursing. REVIEW OF SYSTEMS: Per records. PHYSICAL EXAMINATION: GENERAL: Reveals a nonverbal female. VITAL SIGNS: Temperature is 97.3, pulse 68, respiratory rate 16. HEENT: There is a trach. LUNGS: Reveal decreased breath sounds. CARDIOVASCULAR: S1, S2 without S3, S4 or appreciable murmur. ABDOMEN: Reveals a soft abdomen, normal bowel sounds, without appreciable hepatosplenomegaly with left upper quadrant PEG tube. EXTREMITIES: Reveals contractures, flexion ____ and muscle atrophy previously noted. IMPRESSION: Oropharyngeal dysphagia with dysfunctional G-tube. We will recommend EGD with original PEG tube placement for feeding and care. Risks and benefits have been discussed previously with the patient's power of civil litigation attorney and willing to proceed. GEMA MIXON MD DR: GARRET/reno JOB#: [id number] / [id number]
== END ==
LOC: ENDOS 06:12
PROVIDERS: ATTEND Internal Medicine Gastroenterology
DX: K94.23 Gastrostomy malfunction (principal); K29.50 Unspecified chronic gastritis without bleeding; I10 Essential (primary) hypertension; E11.9 Type 2 diabetes mellitus without complications; E03.9 Hypothyroidism, unspecified; Z90.710 Acquired absence of both cervix and uterus; Z86.73 Personal history of transient ischemic attack (TIA), and cerebral infarction without residual deficits; Z87.440 Personal history of urinary (tract) infections; Z88.6 Allergy status to analgesic agent; Z88.1 Allergy status to other antibiotic agents; Z88.0 Allergy status to penicillin; Z88.8 Allergy status to other drugs, medicaments and biological substances; Z79.84 Long term (current) use of oral hypoglycemic drugs
CPT/HCPCS: 43246; J2001; J2704

== ENCOUNTER 2019-02-25 12:03 | Emergency (ER) | payer MEDICARE, OTHER ==
[~2019-02-25] VITALS: Ht 152.4 cm; Wt 75.3 kg
[~2019-02-25 12:03] MED LIST changes: -IV RINGERS,LACTATED 1000ML 1,000 ML IV SCH; -LIDOCAINE 2% PF 5 ML VIAL. ONE; -ONDANSETRON PF 4 MG/2 ML VIAL. IV PRN; -POTA10TA12 PO; +POTASSIUM CHLO10 ME1 PO; -PROCHLORPERAZINE 10 MG/2 ML VIAL. IV PRN; -PROPOFOL 20 ML IV ONE; -fentaNYL PF VIAL 100 MCG/2 ML VIAL IV PRN
--- NOTE | 2019-02-25 12:14 | PHYS DOC ---
Past Medical History Past Medical History: CVA, Depression, Diabetes-Type II, Heart Disease, H ypertension, Hypothyroid, Stroke, UTI Additional Past Medical Histor: rectal bleeding; carotid stenosis; q uadraplegia; hyperglycemia; aphasia;RLS Past Surgical History: Hysterectomy Additional Past Surgical Histo: CARPAL TUNNEL, STENT, TRACH, GTUBE Alcohol Use: None Drug Use: None Adult General Chief Complaint Chief Complaint: GTUBE REPLACEMENT/MALFUNCTION HPI HPI Patient is a 63-year-old female presents to the emergency department via EMS. She has a feeding tube in place, as she has a history of hemiplegia and dysphagia from a stroke. She is dependent on a feeding tube, and reportedly had her feeding tube replaced last week, but it appears that the feeding tube has started to back out somewhat, through her gastrostomy, which appears somewhat widened. The gastrostomy tube "mushroom" type tip on the inside of the tube is visible through the gastrostomy site. According to snf paperwork, tube feedings have been on hold since 7 AM. The patient does not appear to have any other complaint at this time. She is nonverbal and unable to provide any meaningful history. Review of Systems Review of Systems Unable to obtain review of systems Current Medications Current Medications Current Medications Medications (Trade) Dose Ordered Sig/Kaz Start Time Stop Time Status Last Admin Dose Admin Info (CONTRAST GIVEN -- Rx MONITORING) 1 each PRN DAILY PRN 02/25/19 12:30 02/27/19 12:29 Iohexol (Omnipaque 300 Mg/ml) 50 ml 1X ONCE 02/25/19 12:30 02/25/19 12:31 DC 02/25/19 12:39 50 ML Allergies Allergies Allergies Coded Allergies Type Severity Reaction Last Updated Verified Penicillins Allergy Severe Anaphylaxis 07/25/18 Yes cephalexin Allergy Severe 07/25/18 Yes morphine Allergy Intermediate sweating and shaking 07/25/18 Yes sulfamethoxazole Allergy Intermediate 07/25/18 Yes trimethoprim Allergy Intermediate 07/25/18 Yes I S O L A T I O N *CONTACT* Allergy Unknown 07/25/18 Yes Physical Exam Physical Exam PHYSICAL EXAM: CONSTITUTIONAL: Well developed, well nourished HEAD: normocephalic, atraumatic EENT: PERRL, EOMI. Conjunctivae normal color, sclerae non-icteric; moist mucous membranes. NECK: Supple, non-tender; no meningismus. LUNGS: Lungs CTA, breathing even and unlabored. Normal air movement. HEART: Regular rate and rhythm, no murmur CHEST: No deformity; non-tender ABDOMEN: The abdomen is soft, and non-tender, no masses or bruits. There is a gastrostomy tube in the left upper abdomen, with a bibi-sized gastrostomy site, where there is thinning of the skin and tissue of the abdominal wall at the gastrostomy site. There is no bleeding. EXTREM: Normal ROM; no deformity, no calf tenderness. Normal pulses palpable in all extremities. There is there is mild bilateral pedal edema. SKIN: No rash; no diaphoresis NEURO: Alert; awake, nonverbal, but does not appear to be spontaneous movement of the lower or upper extremities. Current Patient Data Vital Signs Vital Signs Date Time Temp Pulse Resp B/P (MAP) Pulse Ox O2 Delivery O2 Flow Rate FiO2 02/25/19 12:14 98.5 123 20 164/70 (101) 97 Room Air 98.5 EKG EKG [] Radiology/Procedures Radiology/Procedures [] Course & Med Decision Making Course & Med Decision Making Pertinent Imaging studies reviewed. (See chart for details) [] 12:15 PM: I spoke with Dr. Currie, who agreed with bedside replacement, and placement confirmation 2:05 PM: I spoke with the radiologist who interpreted the patient's po stplacement KUB with contrast. There is a little bit of contrast tracking along the shaft of the tube, which likely is refluxing along the shaft of the tube given the patulous stoma. However, there is no intraperitoneal leakage of contrast in the balloon is appropriately positioned within the lumen of the stomach. The patient remained stable will be discharged home. G-TUBE REPLACEMENT NOTE: The current gastrostomy tube was removed without difficulty, and a 24 Wolof gastrostomy tube with a 20 mL balloon was placed, without difficulty. The balloon was inflated, no gastric contents were readily aspirated, so a confirmatory x-ray will be obtained. Dragon Disclaimer Dragon Disclaimer This electronic medical record was generated, in whole or in part, using a voice recognition dictation system. Departure Departure Impression: Primary Impression: PEG tube malfunction Disposition: 03 TRANSFER SNF Condition: STABLE Referrals: ITALO SUNG MD (PCP) Patient Instructions: Gastrostomy Tube, Adult IZZY MULLEN MD Feb 25, 2019 12:14
[2019-02-25] MEDS ORDERED: CONTRAST GIVEN. MC PRN (12:30)
[2019-02-25] MEDS ORDERED: IOHEXOL 300 MG/ML 50 ML VIAL. PO ONE (12:30)
--- NOTE | 2019-02-25 14:02 | RAD ---
Study: KUB Indication: PEG tube replacement. Comparison: 01/23/2017 Findings: A PEG tube is present with the balloon of the device within the stomach. Instilled contrast extends through the stomach and into the first portion of the duodenum. Ill-defined density suggestive contrast along the tube and projecting over the left lower quadrant. Several foci of mineralization projecting over the right renal fossa may represent intrarenal stones. Osteopenia. Impression: PEG tube with the balloon located within the stomach and instilled contrast opacifying the stomach and proximal duodenum. Ill-defined density projecting over the left lower quadrant along the device tubing suggestive of contrast material. This is felt more likely related to leakage of contrast during injection as opposed to a manifestation of device malpositioning given the normal location of the balloon. Electronically signed by: LEIGH HALL MD (02/25/2019 1:59 PM) [facility]
[2019-02-25 14:04] VITALS: BP 153/65
== END 2019-02-25 15:24 | disposition home or self-care (01) ==
LOC: ER 12:03
DX: K94.23 Gastrostomy malfunction (principal); E11.9 Type 2 diabetes mellitus without complications; I11.9 Hypertensive heart disease without heart failure; E03.9 Hypothyroidism, unspecified; Z86.73 Personal history of transient ischemic attack (TIA), and cerebral infarction without residual deficits; Z90.710 Acquired absence of both cervix and uterus; Z88.0 Allergy status to penicillin; Z88.1 Allergy status to other antibiotic agents; Z88.2 Allergy status to sulfonamides; Z88.5 Allergy status to narcotic agent; Z91.041 Radiographic dye allergy status; Y83.8 Other surgical procedures as the cause of abnormal reaction of the patient, or of later complication, without mention of misadventure at the time of the procedure
CPT/HCPCS: 43762; 74018; 99284; Q9967

== ENCOUNTER 2019-04-10 17:10 | Inpatient (IN) | payer MEDICARE, OTHER ==
[~2019-04-10] VITALS: Ht 152.4 cm; Wt 72.1 kg
[2019-04-10] MEDS: AMINO AC 3%/ELECTROLYTE/GLYCER 1,000 ML IV SCH (18:00)
[2019-04-10 19:00] VITALS: BP 130/80
[2019-04-10 22:07] LABS: BASO # 0.1 x10^3/uL (0.0-0.2); BASO % 1 % (0-3); EOS # 0.1 x10^3/uL (0.0-0.7); EOS % 1 % (0-3); HEMOGLOBIN 11.4 g/dL (12.0-15.5); LYMPH # 2.4 x10^3/uL (1.0-4.8); LYMPH % 25 % (24-48); MEAN CORPUSCULAR HEMOGLOBIN 26 pg (25-35); MEAN CORPUSCULAR HGB CONC 33 g/dL (31-37); MEAN CORPUSCULAR VOLUME 79 fL (79-100); MONO # 1.1 x10^3/uL (0.0-1.1); MONO % 11 % (0-9); NEUT # 6.1 x10^3/uL (1.8-7.7); NEUT % 62 % (31-73); PLATELET COUNT 348 x10^3/uL (140-400); RED BLOOD COUNT 4.44 x10^6/uL (3.50-5.40); RED CELL DISTRIBUTION WIDTH 16.4 % (11.5-14.5); WHITE BLOOD COUNT 9.8 x10^3/uL (4.0-11.0)
[2019-04-10 22:21] LABS: ALBUMIN 2.9 g/dL (3.4-5.0); ALBUMIN/GLOBULIN RATIO 0.6 (1.0-1.7); CREATININE 0.5 mg/dL (0.6-1.0); GFR 124.2; POTASSIUM 3.7 mmol/L (3.5-5.1); TOTAL BILIRUBIN 0.4 mg/dL (0.2-1.0); TOTAL PROTEIN 7.6 g/dL (6.4-8.2)
[2019-04-10 23:00] VITALS: BP 104/58
[2019-04-11 03:00] VITALS: BP 157/69
[2019-04-11] MEDS: AMINO AC 3%/ELECTROLYTE/GLYCER 1,000 ML IV SCH ×2 (05:55→19:00)
[2019-04-11 07:00] VITALS: BP 129/64
--- NOTE | 2019-04-11 10:07 | PDOC2 ---
GI CONSULT Reason For Consult: PEG dislodged HPI: HPI: 63 y/o female who I believe was directly admitted from a facility for issues w/ G tube. We have seen her in the past - she is non-verbal and tube-feeding dependent after CVAs. PEGs replaced by Dr. Barnett in the past. PMH: PMH: per chart - CAD (?w/ stent), CVA w/ right hemiparesis, HTN, DM, hypothyroidism, scalp cellulitis, sepsis, UTI, OA, PEG, CTR, hysterectomy FH: Family History: No pertinent hx Social History: Smoke: No ALCOHOL: none Drugs: None ROS: Unable to obtain. Vitals: Vitals: Vital Signs Date Time Temp Pulse Resp B/P (MAP) Pulse Ox O2 Delivery O2 Flow Rate FiO2 04/11/19 08:00 Room Air 04/11/19 07:00 99.2 101 18 129/64 (85) 97 99.2 Labs: Labs: Laboratory Tests Test 04/10/19 20:23 04/10/19 22:04 04/11/19 07:54 Glucose (Fingerstick) 106 mg/dL (70-99) 161 mg/dL (70-99) White Blood Count 9.8 x10^3/uL (4.0-11.0) Red Blood Count 4.44 x10^6/uL (3.50-5.40) Hemoglobin 11.4 g/dL (12.0-15.5) Hematocrit 35.0 % (36.0-47.0) Mean Corpuscular Volume 79 fL (79-100) Mean Corpuscular Hemoglobin 26 pg (25-35) Mean Corpuscular Hemoglobin Concent 33 g/dL (31-37) Red Cell Distribution Width 16.4 % (11.5-14.5) Platelet Count 348 x10^3/uL (140-400) Neutrophils (%) (Auto) 62 % (31-73) Lymphocytes (%) (Auto) 25 % (24-48) Monocytes (%) (Auto) 11 % (0-9) Eosinophils (%) (Auto) 1 % (0-3) Basophils (%) (Auto) 1 % (0-3) Neutrophils # (Auto) 6.1 x10^3/uL (1.8-7.7) Lymphocytes # (Auto) 2.4 x10^3/uL (1.0-4.8) Monocytes # (Auto) 1.1 x10^3/uL (0.0-1.1) Eosinophils # (Auto) 0.1 x10^3/uL (0.0-0.7) Basophils # (Auto) 0.1 x10^3/uL (0.0-0.2) Sodium Level 140 mmol/L (136-145) Potassium Level 3.7 mmol/L (3.5-5.1) Chloride Level 102 mmol/L (98-107) Carbon Dioxide Level 31 mmol/L (21-32) Anion Gap 7 (6-14) Blood Urea Nitrogen 21 mg/dL (7-20) Creatinine 0.5 mg/dL (0.6-1.0) Estimated GFR (Cockcroft-Gault) 124.2 BUN/Creatinine Ratio 42 (6-20) Glucose Level 143 mg/dL (70-99) Calcium Level 9.0 mg/dL (8.5-10.1) Total Bilirubin 0.4 mg/dL (0.2-1.0) Aspartate Amino Transf (AST/SGOT) 29 U/L (15-37) Alanine Aminotransferase (ALT/SGPT) 22 U/L (14-59) Alkaline Phosphatase 127 U/L (46-116) Total Protein 7.6 g/dL (6.4-8.2) Albumin 2.9 g/dL (3.4-5.0) Albumin/Globulin Ratio 0.6 (1.0-1.7) Allergies: Coded Allergies: Penicillins (Verified Allergy, Severe, Anaphylaxis, 07/25/18) 10/04/14 on meropenem cephalexin (Verified Allergy, Severe, 07/25/18) morphine (Verified Allergy, Intermediate, sweating and shaking, 07/25/18) sulfamethoxazole (Verified Allergy, Intermediate, 07/25/18) trimethoprim (Verified Allergy, Intermediate, 07/25/18) I S O L A T I O N *CONTACT* (Verified Allergy, Unknown, 07/25/18) hx-mrsa Medications: Current Medications Medications (Trade) Dose Ordered Sig/Kaz Route PRN Reason Start Time Stop Time Status Last Admin Dose Admin Amino Acids/ Glycerin/ Electrolytes 1,000 ml @ 80 mls/hr [id number] IV 04/10/19 18:00 04/11/19 05:55 Imaging: Imaging: - PE: GEN: NAD HEENT: Atraumatic LUNGS: CTAB anteriorly HEART: mildly tachycardic ABD: G tube in place - saturated gauze pulled back, skin irritated/erythematous, significant drainage - gastric/thick/a little blood EXTREMITY: No edema NEURO/PSYCH: awake, non-verbal A/P: A/P: G tube in place w/ drainage/infection -- After I saw, d/w nurse and Linda/surgery who reviewed [facility] records - pt was seen there by a surgeon in 03/2019 and earlier this month re: gastro-cutaneous fistula. Recommend transfer to [facility] for further evaluation - nurse to contact Dr. Jc re: this. NAOMY SKELTON Apr 11, 2019 10:07
--- NOTE | 2019-04-11 10:22 | PDOC2 ---
JENNIFER CHAPMAN VAN OWNER OPERATOR 04/11/19 1021: CONSULT Date of Consult Date of Consult DATE: 04/11/19 TIME: 10:12 Reason for Consult Reason for Consult: peg malfunction Referring Physician Referring Physician: Dr Jc Identification/Chief Complaint Chief Complaint peg issues Source Source: Chart review History of Present Illness Reason for Visit: Patient was a direct admit from [place], issues with drainage around peg. During investigation found that patient was seen at [facility] by Dr Wolf and had placed a new g tube on 03/10, hx of gastric cutaneous fistula. Records show patient had significant drainage and seen again by Dr Wolf in ER 04/06. He placed some sutures to help tube stability. Xrays showed no leakage of contrast. Now at [facility] for issues with ongoing tube leakage Past Medical History Cardiovascular: HTN Pulmonary: Other CENTRAL NERVOUS SYSTEM: CVA GI: Other Heme/Onc: Anemia NOS Musculoskeletal: Osteoarthritis Rheumatologic: Rheumatoid arthritis Infectious disease: Other Renal/: UTI, Urinary Incontinence Endocrine: Diabetes, Hypothyroidism Past Surgical History Past Surgical History: Cataract Removal, Hysterectomy, Other (g tube) Family History Family History: Family History Unknown Social History ALCOHOL: none Drugs: None Domestic Violence: Neg Current Medications Current Medications Current Medications Amino Acids/ Glycerin/ Electrolytes 1,000 ml @ 80 mls/hr [id number] IV Last administered on 04/11/19at 05:55; Start 04/10/19 at 18:00 Active Scripts Active Reported Metoprolol Tartrate 50 Mg Tablet 1 Tab PEG BID Tylenol With Codeine #4 Tablet (Acetaminophen/Codeine Phosphate) 1 Each Tablet 2 Each PO PRN Q4HRS PRN Clonidine Tts-3 (Clonidine) 1 Each Patch.tdwk 1 Patch TD WEEKLY Venlafaxine Hcl 25 Mg Tablet 25 Mg PEG DAILY Synthroid (Levothyroxine Sodium) 25 Mcg Tablet 1 Tab PEG DAILY Temazepam 15 Mg Capsule 30 Mg PEG HS Allergies Allergies: Coded Allergies: Penicillins (Verified Allergy, Severe, Anaphylaxis, 07/25/18) 10/04/14 on meropenem cephalexin (Verified Allergy, Severe, 07/25/18) morphine (Verified Allergy, Intermediate, sweating and shaking, 07/25/18) sulfamethoxazole (Verified Allergy, Intermediate, 07/25/18) trimethoprim (Verified Allergy, Intermediate, 07/25/18) I S O L A T I O N *CONTACT* (Verified Allergy, Unknown, 07/25/18) hx-mrsa ROS Review of System nonverbal unable to obtain Physical Exam General: Cooperative, No acute distress HEENT: Atraumatic, PERRLA Lungs: Clear to auscultation, Normal air movement Heart: Regular rate, Normal S1, Normal S2 Abdomen: Soft, Other (noted excoriated skin, gastric drainage, dressing appears old and been in place for a while, sutures to tube still in place) Extremities: No clubbing, No cyanosis Vitals VITALS Vital Signs Date Time Temp Pulse Resp B/P (MAP) Pulse Ox O2 Delivery O2 Flow Rate FiO2 04/11/19 08:00 Room Air 04/11/19 07:00 99.2 101 18 129/64 (85) 97 99.2 Labs Labs Laboratory Tests Test 04/10/19 20:23 04/10/19 22:04 04/11/19 07:54 Glucose (Fingerstick) 106 mg/dL (70-99) 161 mg/dL (70-99) White Blood Count 9.8 x10^3/uL (4.0-11.0) Red Blood Count 4.44 x10^6/uL (3.50-5.40) Hemoglobin 11.4 g/dL (12.0-15.5) Hematocrit 35.0 % (36.0-47.0) Mean Corpuscular Volume 79 fL (79-100) Mean Corpuscular Hemoglobin 26 pg (25-35) Mean Corpuscular Hemoglobin Concent 33 g/dL (31-37) Red Cell Distribution Width 16.4 % (11.5-14.5) Platelet Count 348 x10^3/uL (140-400) Neutrophils (%) (Auto) 62 % (31-73) Lymphocytes (%) (Auto) 25 % (24-48) Monocytes (%) (Auto) 11 % (0-9) Eosinophils (%) (Auto) 1 % (0-3) Basophils (%) (Auto) 1 % (0-3) Neutrophils # (Auto) 6.1 x10^3/uL (1.8-7.7) Lymphocytes # (Auto) 2.4 x10^3/uL (1.0-4.8) Monocytes # (Auto) 1.1 x10^3/uL (0.0-1.1) Eosinophils # (Auto) 0.1 x10^3/uL (0.0-0.7) Basophils # (Auto) 0.1 x10^3/uL (0.0-0.2) Sodium Level 140 mmol/L (136-145) Potassium Level 3.7 mmol/L (3.5-5.1) Chloride Level 102 mmol/L (98-107) Carbon Dioxide Level 31 mmol/L (21-32) Anion Gap 7 (6-14) Blood Urea Nitrogen 21 mg/dL (7-20) Creatinine 0.5 mg/dL (0.6-1.0) Estimated GFR (Cockcroft-Gault) 124.2 BUN/Creatinine Ratio 42 (6-20) Glucose Level 143 mg/dL (70-99) Calcium Level 9.0 mg/dL (8.5-10.1) Total Bilirubin 0.4 mg/dL (0.2-1.0) Aspartate Amino Transf (AST/SGOT) 29 U/L (15-37) Alanine Aminotransferase (ALT/SGPT) 22 U/L (14-59) Alkaline Phosphatase 127 U/L (46-116) Total Protein 7.6 g/dL (6.4-8.2) Albumin 2.9 g/dL (3.4-5.0) Albumin/Globulin Ratio 0.6 (1.0-1.7) Laboratory Tests Test 04/10/19 20:23 04/10/19 22:04 04/11/19 07:54 Glucose (Fingerstick) 106 mg/dL (70-99) 161 mg/dL (70-99) White Blood Count 9.8 x10^3/uL (4.0-11.0) Red Blood Count 4.44 x10^6/uL (3.50-5.40) Hemoglobin 11.4 g/dL (12.0-15.5) Hematocrit 35.0 % (36.0-47.0) Mean Corpuscular Volume 79 fL (79-100) Mean Corpuscular Hemoglobin 26 pg (25-35) Mean Corpuscular Hemoglobin Concent 33 g/dL (31-37) Red Cell Distribution Width 16.4 % (11.5-14.5) Platelet Count 348 x10^3/uL (140-400) Neutrophils (%) (Auto) 62 % (31-73) Lymphocytes (%) (Auto) 25 % (24-48) Monocytes (%) (Auto) 11 % (0-9) Eosinophils (%) (Auto) 1 % (0-3) Basophils (%) (Auto) 1 % (0-3) Neutrophils # (Auto) 6.1 x10^3/uL (1.8-7.7) Lymphocytes # (Auto) 2.4 x10^3/uL (1.0-4.8) Monocytes # (Auto) 1.1 x10^3/uL (0.0-1.1) Eosinophils # (Auto) 0.1 x10^3/uL (0.0-0.7) Basophils # (Auto) 0.1 x10^3/uL (0.0-0.2) Sodium Level 140 mmol/L (136-145) Potassium Level 3.7 mmol/L (3.5-5.1) Chloride Level 102 mmol/L (98-107) Carbon Dioxide Level 31 mmol/L (21-32) Anion Gap 7 (6-14) Blood Urea Nitrogen 21 mg/dL (7-20) Creatinine 0.5 mg/dL (0.6-1.0) Estimated GFR (Cockcroft-Gault) 124.2 BUN/Creatinine Ratio 42 (6-20) Glucose Level 143 mg/dL (70-99) Calcium Level 9.0 mg/dL (8.5-10.1) Total Bilirubin 0.4 mg/dL (0.2-1.0) Aspartate Amino Transf (AST/SGOT) 29 U/L (15-37) Alanine Aminotransferase (ALT/SGPT) 22 U/L (14-59) Alkaline Phosphatase 127 U/L (46-116) Total Protein 7.6 g/dL (6.4-8.2) Albumin 2.9 g/dL (3.4-5.0) Albumin/Globulin Ratio 0.6 (1.0-1.7) Assessment/Plan Assessment/Plan I reviewed this with Dr Cunningham, since recently operated on at [facility] by Dr Wolf would rec tx there for his ongoing care I d/w Dr Jc and will discuss with case management GEMA CUNNINGHAM MD 04/11/19 1140: CONSULT Assessment/Plan Assessment/Plan Reviewed, agree with above; given recent surgery and FU by Dr Wolf at [facility], recommend transferring care there so that he may be able to reevaluate his patient. JENNIFER CHAPMAN APRN Apr 11, 2019 10:21 GEMA CUNNINGHAM MD Apr 11, 2019 11:40
[2019-04-11 11:00] VITALS: BP 164/84
--- NOTE | 2019-04-11 11:25 | NUR ---
MASTER following. Discussed with RN, and Linda Iyer. Dr. Kauffman wanting transfer to [facility] as patient was seen there on 03/10 for the tube placement, and again on 04/[address] Wolf at [facility] was the surgeon. MASTER contacted [facility] transfer line (ph: [phone], fax: [phone]), Dr. Jc to do the doctor to doctor as he is the admitting doctor. MASTER provided Dr. Jc's office number. MASTER faxed pt facesheet to [facility]. Awaiting further confirmation. Addendum: 04/11/19 at [address] Rivera will accept pt for hospital transfer, MASTER spoke with Dr. Jc, he is agreeable to transfer pt to [facility]. [facility] does not have a bed at this time. MASTER awaiting for bed opening. RN notified. MASTER will continue to follow.
--- NOTE | 2019-04-11 14:11 | NUR ---
wound care patient seen per wound care consult. see wound assessment. patient has an abdominal tube that has a large amount of drainage leaking from it, the surround skin is macerated, this area was cleaned, measured and pictured and redressed with skin prep and stoma powder (crusting) with gauze pads over, recommendations of changing every 2-3 hours or more for drainage. patient assessed from head to toe and no other wounds noted at this time. patient currently on a P500 bed at this time. patient turned to the right side at this time. wound care will continue to f/u.
[2019-04-11 15:00] VITALS: BP 132/65
[2019-04-11 19:20] VITALS: BP 130/76
--- NOTE | 2019-04-11 21:55 | DS ---
DATE OF DISCHARGE: 04/11/2019 DATE OF DISCHARGE: 04/11/2019 PRIMARY DIAGNOSIS: Feeding tube dislodgement with fistula and inability to place another feeding tube. ADDITIONAL DIAGNOSES: 1. Diabetes. 2. Status post cerebrovascular accident with hemiparesis. 3. Aphasia. 4. Dysphagia. 5. Hypertension. CHIEF COMPLAINT AND HISTORY OF PRESENT ILLNESS: This 63-year-old white female is admitted from senior living with dislodgement once again of the feeding tube. There have been multiple problems leading up to this and there was a special tube placed recently at [facility] and even this is not working. She was found being ordered to have a fistula and felt that the special tube did not work. She would likely need surgical repair of the problem to be able to place another feeding tube of some sort, and the patient was admitted. SUMMARY OF STAY: The patient was admitted. Surgery and GI were consulted. Both felt that it was best to transfer her to [facility] where she had been seen with this workup for the same before, even though feeding tube has been placed originally at [place]. I discussed this with Dr. Rivera at [facility], who agreed to take her in transfer and this was accomplished. DISPOSITION: The patient is transferred to [facility] for further care. TPN will be continued as well as current medications. We will follow up with her after discharge from the [facility]. ITALO SUNG MD DR: MADELYN/reno JOB#: [id number] / [id number]
--- NOTE | 2019-04-11 22:48 | HP ---
ADMIT DATE: 04/10/2019 ADMISSION HISTORY AND PHYSICAL CHIEF COMPLAINT AND HISTORY OF PRESENT ILLNESS: This 63-year-old white female is well known to me from followup for many years. The patient is [facility]. Her has in the last year or so under the care of her at home after a massive stroke with hemiparesis, dysphagia, aphasia and she has been feeding tube dependent. She has had multiple problems with her feeding tube recently with coming out, going back in, had been at the [facility] at least on 1-2 occasions where the fistula was diagnosed and it was felt if a special tube, which had been placed, would not do, then surgical intervention would be needed. She had problems again, was transferred to [place], was her usual hospital for admission for the same. PAST MEDICAL HISTORY: Well documented on old charts, does include longstanding diabetes, hypertension, prior CVA, dysphagia, aphagia, etc. MEDICATIONS: Brought with the patient, listed on the computer. ALLERGIES: Listed on the computer. SOCIAL HISTORY: She is , nonsmoker and nondrinker. Does not use drugs. Again, is a [facility] resident. FAMILY HISTORY: Noncontributory. REVIEW OF SYSTEMS: Unobtainable due to her aphasic state. PHYSICAL EXAMINATION: GENERAL: She is well-developed, well-nourished white female, in no acute distress. VITAL SIGNS: Stable. She is afebrile. HEAD, EYES, EARS, NOSE AND THROAT: Unremarkable. NECK: Supple, without adenopathy or thyromegaly. CHEST: Clear to auscultation and percussion. HEART: Regular rate and rhythm without S3, S4 or murmur. ABDOMEN: Soft, nontender, without hepatosplenomegaly or masses. Her feeding tube was partially dislodged and covered with a bandage on her abdomen. EXTREMITIES: Without cyanosis, clubbing, edema. NEUROLOGIC: Stable for many years with profound hemiparesis and aphasia. IMPRESSION: Feeding tube dysfunction/dislodgement with fistula. PLAN: The patient has been admitted. She will be placed on PPI and I am going to have GI and Surgery both to see her in consultation and make plans on how we can fix this once and for all. ITALO A. APPL, MD DR: Laurel JOB#: [id number] / [id number]
[2019-04-11 23:05] VITALS: BP 114/40
[2019-04-12 03:22] VITALS: BP 140/64
[2019-04-12 07:00] VITALS: BP 129/75
[2019-04-12] MEDS: AMINO AC 3%/ELECTROLYTE/GLYCER 1,000 ML IV SCH (07:31)
--- NOTE | 2019-04-12 08:45 | PDOC ---
Provider Note Provider Note [id number] IZZY CAMERON MD Apr 12, 2019 08:45
--- NOTE | 2019-04-12 09:02 | NUR ---
SW following. Pt transferring to [facility] via [facility] at 0930. RN and [facility] aware.
--- NOTE | 2019-04-12 09:17 | DS ---
DATE OF DISCHARGE: 04/12/2019 HOSPITAL SUMMARY: The patient was admitted here after PEG tube placement at [facility] recently, but the PEG tube became dislodged. Laboratory studies were unremarkable and no x-rays were done. A bed is available at [facility] and she is to be transferred there for replacement by the surgeon who performed this. FINAL DIAGNOSES: Dislodged percutaneous endoscopic gastrostomy tube. OPERATIONS AND PROCEDURES: None. COMPLICATIONS: None. CONSULTATIONS: Dr. Barnett and Dr. Mckenzie's group. DISPOSITION: All meds remain the same. She is transferred to [facility] under the care of the surgeon, who will be performing the further surgery. IZZY CAMERON MD DR: ALIA/nts JOB#: [id number] / [id number]
--- NOTE | 2019-04-12 09:20 | NUR ---
Report called to Silke at [facility].
--- NOTE | 2019-04-12 09:37 | NUR ---
IP: Pt has had a hx of MDRO's since 2014 with most current a urine with VRE on 07/19/17 and a + mrsa screen n 11/04/17. Pt to be in contact precautions until there are 2 negatives for each source 7 days apart.
--- NOTE | 2019-04-12 09:51 | PDOC ---
Objective: Objective: D/w nurse - transferring to [facility] this morning. Vital Signs: Vital Signs Date Time Temp Pulse Resp B/P (MAP) Pulse Ox O2 Delivery O2 Flow Rate FiO2 04/12/19 08:00 Room Air 04/12/19 07:00 99.3 108 18 129/75 (93) 97 99.3 Labs: Laboratory Tests Test 04/11/19 10:44 04/11/19 16:24 04/11/19 20:46 04/12/19 08:00 Glucose (Fingerstick) 200 mg/dL (70-99) 200 mg/dL (70-99) 196 mg/dL (70-99) 232 mg/dL (70-99) PE: GEN: NAD HEART: mildly tachycardic ABD: G tube, gauze saturated w/ drainage - gastric and bloody SKIN: erythema/irritating around tube NEURO/PSYCH: awake A/P: G tube, fistula -- Plans to transfer to [facility] to see established surgeon. Hemodynamically unstable?: No Is patient in severe pain?: No (non-verbal) Is NPO status required?: Yes (has G-tube) NAOMY SKELTON Apr 12, 2019 09:51
--- NOTE | 2019-04-12 10:46 | NUR ---
Discharged by EMT.
== END 2019-04-12 10:45 | disposition short-term general hospital (02) | DRG 394 ==
LOC: 4 NORTH 17:10
PROVIDERS: ADMIT Family Medicine; ATTEND Family Medicine
DX: K94.23 Gastrostomy malfunction (principal); I69.351 Hemiplegia and hemiparesis following cerebral infarction affecting right dominant side; E03.9 Hypothyroidism, unspecified; E11.9 Type 2 diabetes mellitus without complications; I10 Essential (primary) hypertension; I25.10 Atherosclerotic heart disease of native coronary artery without angina pectoris; M06.9 Rheumatoid arthritis, unspecified; Z90.710 Acquired absence of both cervix and uterus; Z95.5 Presence of coronary angioplasty implant and graft; M19.90 Unspecified osteoarthritis, unspecified site; L98.8 Other specified disorders of the skin and subcutaneous tissue
CPT/HCPCS: 36415; 80053; 82962; 85025; G0378

== ENCOUNTER 2021-03-23 18:35 | Inpatient (IN) | payer OTHER ==
[~2021-03-23] VITALS: Ht 160 cm; Wt 77.6 kg
[~2021-03-23 18:35] MED LIST changes: +ACET500T68 PO; +AMLO-187 PO; +ASPI81TA59 PO; +ATOR80TA72 PO; +CEFD300C PO; +CLIN-94 PO; -CLIN300C8 PO; +LANS30TA6 PEG; +LEVO500T9 PO; +LEVO88TA51 PO; +LINE600T12 PO; +LISI10TA16 PO; -LISI10TA2 PO; +METO25TA4 PO; +MONT10TA49 PO; +MULT-114 PO; -ROPI0.5T2 PEG; +ROPI0.5T4 PEG; +[UNRECOGNIZED DRUG - CODE] GT
[2021-03-24] MEDS: HYDROmorphone 2 MG/ML VIAL IVP PRN ×3 (17:54→22:54)
[2021-03-24 19:00] VITALS: BP 110/51
--- NOTE | 2021-03-24 23:23 | NUR ---
Family @ bedside. O2 @ 2L from 15 L per family request. O2 57% w/ agonal breathing. Hospice nurse was here and left. Keeping her comfortable w/ Ativan and Dilaudid.
[2021-03-25] MEDS: HYDROmorphone 2 MG/ML VIAL IVP PRN (00:54)
--- NOTE | 2021-03-25 05:26 | NUR ---
Sangeeta @ 0340 w/ several family members @ bedside. Verified by 2 RN's. Electronic Device Monitor, Hospice , , [facility] and [facility] all notified. Post mortum care performed. Bartholomew and IV D/C' d. peg tube left in place per Hospice nurse.
--- NOTE | 2021-03-25 06:33 | NUR ---
Family and Hospice nurse just left. Body to be released to home. No personal belongings will be sent w/ her.
--- NOTE | 2021-03-25 09:18 | PN ---
DATE: 03/24/2021 DAILY PROGRESS NOTE LOCATION: She is in room 516. SUBJECTIVE: This 65-year-old female was transferred to general inpatient hospice due to multiple events and family deciding hospice care was a way to go. OBJECTIVE: GENERAL: The patient is on fairly high amounts of oxygen and appears comfortable. CHEST: Reveals occasional rhonchi. HEART: Regular rate and rhythm. ABDOMEN: Benign. ASSESSMENT: 1. Hospice care with comfort. 2. Status post cerebrovascular accident. 3. Dysphagia, on tube feedings. 4. Multifocal pneumonia. 5. Ongoing fevers. 6. Amiodarone extravasation, chest causing worsening and fevers. PLAN: Supportive comfort care. Family is on board. It would be nice if she could be transferred back to the snf, but we will see if the cards line up that way or not. SANDRA DR: Laurel TID: [id number]
== END 2021-03-25 06:38 | DRG 871 ==
LOC: 5 NORTH 18:35
PROVIDERS: ADMIT Family Medicine; ATTEND Family Medicine
DX: A41.9 Sepsis, unspecified organism (principal); J18.9 Pneumonia, unspecified organism; N17.9 Acute kidney failure, unspecified; I49.5 Sick sinus syndrome; R13.10 Dysphagia, unspecified; Z51.5 Encounter for palliative care; Z86.73 Personal history of transient ischemic attack (TIA), and cerebral infarction without residual deficits
CPT/HCPCS: J1170; J2060; G0378